=== PATIENT | female | born 1965 | race Caucasian/White ===

== ENCOUNTER → 2016-08-07 | Outpatient (CLI) | payer OTHER ==
--- NOTE | 2016-08-07 16:57 | WOMENS IMAGING REPORT ---
EXAM DESCRIPTION: BILAT SCREENING MAMMO W/CAD COMPLETED DATE/TIME: 08/07/2016 10:07 am REASON FOR STUDY: Z12.31, ROUTINE SCREENING MAMMO Z12.31 ENCNTR SCREEN MAMMOGRAM FOR MALIGNANT NEOP LASM OF KALEY COMPARISON: Multiple since 02/13/2014 TECHNIQUE: Standard craniocaudal and mediolateral oblique views of each breast recorded using digita l acquisition. LIMITATIONS: None. FINDINGS: Findings present which are benign by mammographic criteria. No suspicious masses, calcifi cations or architectural distortion. Pertinent benign findings: Stable benign bilateral breast calcifications. Left breast stereotactic c lip. Read with the assistance of CAD. .[facility] - R2 Cenova Version 1.3 .[facility] Imaging - R2 Cenova Version 1.3 .[facility] Imaging - R2 Cenova Version 2.4 .[facility] [place] Cenova Version 2.4 .[facility] - R2 Supervisor Modern Languages Version 9.2 Benign mammographic findings may include one or more of the following: Smooth masses, popcorn/rim/co arse calcifications, asymmetries, post-procedure changes, and lesions with long-standing stability. IMPRESSION: BENIGN MAMMOGRAPHIC FINDINGS. BIRADS 2 BREAST DENSITY: c. The breasts are heterogeneously dense, which may obscure small masses. BIRAD: 2 BENIGN FINDING(S) RECOMMENDATION: ROUTINE SCREENING Please consider bilateral screening tomosynthesis in July 2017 COMMENT: The patient has been notified of the results by letter per [place] requirements. Additional no tification policies are in place for contacting patient with suspicious or incomplete findings. Quality ID #[id number]: The [employer] recommends an annual screening mammogram for women aged 40 years or over. This facility utilizes a reminder system to ensure that all patients receive reminder letters, and/or direct phone calls for appointments. This includes reminders for routine scr eening mammograms, diagnostic mammograms, or other Breast Imaging Interventions when appropriate. Th is patient will be placed in the appropriate reminder system. The [employer] (ACR) has developed recommendations for screening MRI of the breast s in certain patient populations, to be used in conjunction with mammography. Breast MRI surveillanc e may be appropriate for women with more than 20% lifetime risk of developing breast cancer as deter mined by genetic testing, significant family history of the disease, or history of mantle radiation f or Hodgkins Disease. ACR Practice Guidelines 2008. TECHNICAL DOCUMENTATION: FINDING NUMBER: (1) ASSESSMENT: (1) JOB ID: [id number] [employer]- All Rights Reserved
== END ==
LOC: WI 09:44
PROVIDERS: ATTEND Family Medicine
DX: Z12.31 Encounter for screening mammogram for malignant neoplasm of breast (principal)
CPT/HCPCS: 77067; G0202

== ENCOUNTER 2016-12-24 18:34 | Emergency (ER) | payer OTHER ==
[2016-12-24] MEDS ORDERED: NORMAL SALINE 1000 ML 1,000 ML IV ONE (19:43)
[2016-12-24] MEDS ORDERED: DIAZEPAM INJ 10 MG/2 ML DISP.SYRIN IV ONE (19:43)
[2016-12-24 20:17] LABS: ABSOLUTE BASOPHILS # (AUTO) 0.1 10^3/uL (0.0-0.2); ABSOLUTE LYMPHOCYTES (AUTO) 1.3 10^3/uL (0.5-4.7); ABSOLUTE MONOCYTES (AUTO) 0.6 10^3/uL (0.1-1.4); ABSOLUTE NEUT (AUTO) 2.5 10^3/uL (1.7-8.2); BASOPHILS % (AUTO) 1.3 % (0-2); EOSINOPHILS % (AUTO) 0.7 % (0-6); HEMATOCRIT 31.2 % (36.0-47.0); HEMOGLOBIN 10.9 g/dL (12.0-15.5); HGB HCT DIFFERENCE 1.5; LYMPHOCYTES % (AUTO) 28.1 % (13-45); MEAN CORPUSCULAR HEMOGLOBIN 39.2 pg (27.0-33.4); MEAN CORPUSCULAR VOLUME 112 fl (80-97); MONOCYTES % (AUTO) 14.3 % (3-13); RED BLOOD COUNT 2.78 10^6/uL (3.72-5.28); RED CELL DISTRIBUTION WIDTH 16.8 % (11.5-14.0); SEGMENTED NEUTROPHILS % (AUTO) 55.6 % (42-78); WHITE BLOOD COUNT 4.5 10^3/uL (4.0-10.5)
--- NOTE | 2016-12-24 20:29 | ER Document Report ---
ED General - General Chief Complaint: Vomiting Stated Complaint: VOMITING Time Seen by Provider: 12/24/16 19:15 Notes: Patient is a 51-year-old female with a past medical history of chronic pain, chronic alcohol abuse, who presents with a multitude of complaints. Her primary concern appears to be complete body pain stating "everything hurts except my teeth". States that she has had this pain for at least the past several years. Nothing was new or different today other than "I just cannot take it anymore". She has been following with her primary care doctor at the [place] without resolution of her symptoms. She also complains of a constant, burning pain to her epigastrium and lower chest. She states eating or drinking worsens this discomfort. She has not tried anything to relieve her symptoms. Patient reports that she is having difficulty tolerating oral intake. Of note, patient does smell of alcohol. TRAVEL OUTSIDE OF THE [place] IN LAST 30 DAYS: No - Related Data Allergies/Adverse Reactions: No Known Allergies Allergy (Unverified 12/24/16 18:59) Past Medical History - General Information source: Patient - Social History Smoking Status: Current Every Day Smoker Frequency of alcohol use: None Drug Abuse: None Lives with: Family Family History: Reviewed & Not Pertinent Review of Systems - Review of Systems Notes: Constitutional: Negative for fever. Positive for diffuse body pain HENT: Negative for sore throat. Eyes: Negative for visual changes. Cardiovascular: Negative for chest pain. Respiratory: Negative for shortness of breath. Gastrointestinal: Positive for abdominal pain and vomiting Genitourinary: Negative for dysuria. Musculoskeletal: Negative for back pain. Skin: Negative for rash. Neurological: Negative for headaches, weakness or numbness. 10 point ROS negative except as marked above and in HPI. Physical Exam - Vital signs Vitals: Temp Pulse Resp BP Pulse Ox 98.9 F 110 H 20 116/79 98 12/24/16 18:56 12/24/16 18:56 12/24/16 18:56 12/24/16 18:56 12/24/16 18:56 Interpretation: Tachycardic Notes: PHYSICAL EXAMINATION: GENERAL: appears much older than stated age. Crying and tearful but in no acute distress. HEAD: Atraumatic, normocephalic. EYES: Pupils equal round and reactive to light, extraocular movements intact, sclera anicteric, conjunctiva are normal. ENT: nares patent, oropharynx clear without exudates. Moderately dry mucous membranes. NECK: Normal range of motion, supple without lymphadenopathy LUNGS: Breath sounds clear to auscultation bilaterally and equal. No wheezes rales or rhonchi. HEART: Regular rate and rhythm without murmurs ABDOMEN: Soft, mild epigastric abdominal tenderness on palpation otherwise no localized tenderness, normoactive bowel sounds. No guarding, no rebound. No masses appreciated. EXTREMITIES: Normal range of motion, no pitting or edema. No cyanosis. NEUROLOGICAL: No focal neurological deficits. Moves all extremities spontaneously and on command. PSYCH: Crying, highly anxious SKIN: Warm, Dry, normal turgor, no rashes or lesions noted. Course - Re-evaluation Re-evalutation: 12/24/16 20:29 Patient presents with multiple vague complaints that did not appear to be concerning for any acute life-threatening pathology. Vitals are within normal limits at triage and at time of discharge. Physical examination is unremarkable. Patient has tolerated oral intake without difficulty. Patient was not noted to be in distress at any point during their ER visit. At this time, based on the reassuring evaluation, I do not suspect an acute NH, pulmonary embolus, aortic dissection, acute intra-abdominal pathology, stroke, or sepsis. I suspect that patient is a chronic alcoholic and I have addressed this with the patient and her mother the bedside. I suspect that when patient first came to the emergency room she was actually having acute alcohol withdrawal resolved after receiving 10 mg of IV diazepam. Will discharge with return precautions and follow-up recommendations. Verbal discharge instructions given a the bedside and opportunity for questions given. Medication warnings reviewed. Patient is in agreement with this plan and has verbalized understanding of return precautions and the need for primary care follow-up in the next 24-72 hours. - Vital Signs Vital signs: Temp Pulse Resp BP Pulse Ox 99.1 F 90 20 132/78 H 98 12/24/16 21:56 12/24/16 21:56 12/24/16 18:56 12/24/16 21:56 12/24/16 21:56 - Laboratory Result Diagrams: 12/24/16 19:50 12/24/16 19:50 Laboratory results interpreted by me: 12/24/16 12/24/16 19:50 19:50 RBC 2.78 L Hgb 10.9 L Hct 31.2 L MCV 112 H MCH 39.2 H RDW 16.8 H Monocytes % 14.3 H Sodium 145.4 H BUN 3 L Direct Bilirubin 0.7 H AST 196 H ALT 61 H Alkaline Phosphatase 208 H Creatine Kinase 22 L Discharge - Discharge Clinical Impression: Epigastric abdominal pain, Nutrition disorder Alcohol dependency Qualifiers: Substance use status: in withdrawal Complication of substance-induced condition : uncomplicated Qualified Code(s): F10.230 - Alcohol dependence with withdrawal , uncomplicated Condition: Stable Disposition: HOME, SELF-CARE Additional Instructions: You were seen in the emergency department today for problems related to alcohol. Being seen in the emergency department after drinking alcohol is a serious indicator that you have a problem with alcohol. You should seek help with the attached resources for your problem drinking. Please return to the emergency room immediately if you experience any concerning symptoms including high fevers, severe headache, chest pain, difficulty breathing, abdominal pain, slurred speech, numbness or weakness in your arms or legs, or any other symptom that concerns you.
[2016-12-24 20:30] LABS: ALANINE AMINOTRANSFERASE 61 U/L (9-52); ALBUMIN 3.5 g/dL (3.5-5.0); ALCOHOL 162 mg/dL (NONE DETECTED); ALKALINE PHOSPHATASE 208 U/L (38-126); ANION GAP 16 (5-19); ASPARTATE AMINO TRANSFERASE 196 U/L (14-36); BILIRUBIN,DIRECT 0.7 mg/dL (0.0-0.4); BLOOD UREA NITROGEN 3 mg/dL (7-20); CALCIUM 8.7 mg/dL (8.4-10.2); CARBON DIOXIDE 24 mmol/L (22-30); CHLORIDE 105 mmol/L (98-107); CREATINE KINASE 22 U/L (30-135); CREATININE RESULT 0.64 mg/dL (0.52-1.25); GLUCOSE 78 mg/dL (75-110); POTASSIUM 3.7 mmol/L (3.6-5.0); SODIUM 145.4 mmol/L (137-145); TOTAL PROTEIN 6.6 g/dL (6.3-8.2)
[2016-12-24 20:53] LABS: ANISOCYTOSIS 1+; POIKILOCYTOSIS SLIGHT; TARGET CELLS SLIGHT; TOXIC GRANULATION SLIGHT
[2016-12-24 22:51] VITALS: BP 132/78
== END 2016-12-24 22:36 | disposition home or self-care (01) ==
LOC: ER 18:34
DX: R10.13 Epigastric pain (principal); E46 Unspecified protein-calorie malnutrition; F10.230 Alcohol dependence with withdrawal, uncomplicated; R11.10 Vomiting, unspecified; G89.29 Other chronic pain; M79.1 Myalgia; F17.200 Nicotine dependence, unspecified, uncomplicated
CPT/HCPCS: 99284; 96361; 96374; 36415; 80307; 82550; 85025; 80053; J3360; J7030

== ENCOUNTER 2017-01-22 11:42 | Emergency (ER) | payer OTHER ==
--- NOTE | 2017-01-22 11:54 | ER Document Report ---
ED Medical Screen (RME) - General Chief Complaint: Abnormal Lab Results Stated Complaint: ABNORMAL LABS Time Seen by Provider: 01/22/17 11:47 Notes: 51-year-old female patient sent to the emergency room for evaluation by the [place] [facility]. Had lab work done 2 days ago showing electrolyte abnormalities. She was seen here on 12/24/2016 with nausea vomiting, and EtOH intoxication. Elect lites were normal at that time, however she states she had been to an emergency room in [place] twice in the days prior where she had received IV fluids and magnesium and potassium. I have greeted and performed a rapid initial assessment of this patient. A comprehensive ED assessment and evaluation of the patient, analysis of test results and completion of the medical decision making process will be conducted by additional ED providers. TRAVEL OUTSIDE OF THE [place] IN LAST 30 DAYS: No - Related Data Allergies/Adverse Reactions: No Known Allergies Allergy (Verified 01/22/17 11:43) Past Medical History Renal/ Medical History: Denies: Hx Peritoneal Dialysis Physical Exam - Vital signs Vitals: Temp Pulse Resp BP Pulse Ox 98.6 F 93 15 115/89 H 98 01/22/17 11:46 01/22/17 11:46 01/22/17 11:46 01/22/17 11:46 01/22/17 11:46 Course - Vital Signs Vital signs: Temp Pulse Resp BP Pulse Ox 98.6 F 93 15 115/89 H 98 01/22/17 11:46 01/22/17 11:46 01/22/17 11:46 01/22/17 11:46 01/22/17 11:46
[2017-01-22 13:04] LABS: ABSOLUTE BASOPHILS # (AUTO) 0.1 10^3/uL (0.0-0.2); ABSOLUTE LYMPHOCYTES (AUTO) 0.9 10^3/uL (0.5-4.7); ABSOLUTE NEUT (AUTO) 4.2 10^3/uL (1.7-8.2); BASOPHILS % (AUTO) 0.9 % (0-2); EOSINOPHILS % (AUTO) 0.2 % (0-6); HEMATOCRIT 34.5 % (36.0-47.0); HEMOGLOBIN 11.9 g/dL (12.0-15.5); HGB HCT DIFFERENCE 1.2; LYMPHOCYTES % (AUTO) 15.2 % (13-45); MEAN CORPUSCULAR HEMOGLOBIN 37.5 pg (27.0-33.4); MEAN CORPUSCULAR HGB CONC 34.5 g/dL (32.0-36.0); MONOCYTES % (AUTO) 15.8 % (3-13); RED BLOOD COUNT 3.17 10^6/uL (3.72-5.28); RED CELL DISTRIBUTION WIDTH 15.8 % (11.5-14.0); SEGMENTED NEUTROPHILS % (AUTO) 67.9 % (42-78); WHITE BLOOD COUNT 6.2 10^3/uL (4.0-10.5)
[2017-01-22 13:10] LABS: MEAN CORPUSCULAR VOLUME 109 fl (80-97)
[2017-01-22 13:19] LABS: ALANINE AMINOTRANSFERASE 26 U/L (9-52); ALBUMIN 3.5 g/dL (3.5-5.0); ALKALINE PHOSPHATASE 157 U/L (38-126); ANION GAP 14 (5-19); ASPARTATE AMINO TRANSFERASE 33 U/L (14-36); BILIRUBIN,DIRECT 0.4 mg/dL (0.0-0.4); BILIRUBIN,TOTAL 0.5 mg/dL (0.2-1.3); BLOOD UREA NITROGEN 6 mg/dL (7-20); CALCIUM 8.7 mg/dL (8.4-10.2); CARBON DIOXIDE 32 mmol/L (22-30); CHLORIDE 95 mmol/L (98-107); CREATININE RESULT 0.56 mg/dL (0.52-1.25); GLUCOSE 85 mg/dL (75-110); SODIUM 140.6 mmol/L (137-145); TOTAL PROTEIN 6.9 g/dL (6.3-8.2)
[2017-01-22 13:23] LABS: ALCOHOL < 10 mg/dL (NONE DETECTED)
[2017-01-22 13:26] LABS: MAGNESIUM 0.8 mg/dL (1.6-2.3); POTASSIUM 2.6 mmol/L (3.6-5.0)
[2017-01-22] MEDS ORDERED: MAGNESIUM SULFATE/D5W 1 GM/100 ML RTUPB IV ONE (13:26)
[2017-01-22] MEDS ORDERED: POTASSI CL 20 MEQ/50 ML RIDER 20 MEQ/50 ML RTUPB IV SCH (13:28)
[2017-01-22] MEDS ORDERED: POTASSIUM CHLORIDE 10 MEQ TABLET.SA PO ONE (13:28)
[2017-01-22] MEDS ORDERED: POTASSI CL 20 MEQ/50 ML RIDER 20 MEQ/50 ML RTUPB IV ONE (13:28)
--- NOTE | 2017-01-22 13:46 | EKG REPORT ---
SEVERITY:- NORMAL ECG - SINUS RHYTHM NON SPECIFIC ST SEG CHANGES LATERAL CHEST LEAD : Confirmed by: Juan Del Toro 22-Jan-2017 13:45:35
--- NOTE | 2017-01-22 13:59 | ER Document Report ---
ED General - General Chief Complaint: Abnormal Lab Results Stated Complaint: ABNORMAL LABS Time Seen by Provider: 01/22/17 11:47 TRAVEL OUTSIDE OF THE [place] IN LAST 30 DAYS: No - HPI Patient complains to provider of: Abnormal laboratory studies Notes: Patient with a history of chronic alcoholism also a history of chronic hypokalemia hypomagnesemia states is been to this hospital before for nausea vomiting also recently has been to [facility] for hypokalemia hypomagnesemia. Patient coming in today states that 2 days ago [facility] perform [facility] studies and was told to come to the ER for significantly low potassium and magnesium. Patient states chronic pain in her legs states sharp shooting dull achy pain. Patient states is been ongoing for months. Otherwise patient's resting comfortably states that she does feel unwell however does not look to be in any kind of distress patient states no nausea vomiting diarrhea recently. Patient states has not felt like eating over the last few days however had good meals the last 2 days. - Related Data Allergies/Adverse Reactions: No Known Allergies Allergy (Verified 01/22/17 11:43) Past Medical History - Social History Smoking Status: Current Every Day Smoker Chew tobacco use (# tins/day): No Frequency of alcohol use: None Drug Abuse: None Family History: Reviewed & Not Pertinent Patient has suicidal ideation: No Patient has homicidal ideation: No Renal/ Medical History: Denies: Hx Peritoneal Dialysis Past Surgical History: Reports: Hx Appendectomy, Hx Orthopedic Surgery - L ankle Review of Systems - Review of Systems Constitutional: Other - Lab abnormalities EENT: No symptoms reported Cardiovascular: No symptoms reported Respiratory: No symptoms reported Gastrointestinal: No symptoms reported Genitourinary: No symptoms reported Female Genitourinary: No symptoms reported Musculoskeletal: No symptoms reported Skin: No symptoms reported Hematologic/Lymphatic: No symptoms reported Neurological/Psychological: No symptoms reported Physical Exam - Vital signs Vitals: Temp Pulse Resp BP Pulse Ox 98.6 F 93 15 115/89 H 98 01/22/17 11:46 01/22/17 11:46 01/22/17 11:46 01/22/17 11:46 01/22/17 11:46 Interpretation: Normal - General General appearance: Appears well, Alert - HEENT Head: Normocephalic, Atraumatic Eyes: Normal Pupils: PERRL - Respiratory Respiratory status: No respiratory distress Chest status: Nontender Breath sounds: Normal Chest palpation: Normal - Cardiovascular Rhythm: Regular Heart sounds: Normal auscultation Murmur: No - Abdominal Inspection: Normal Distension: No distension Bowel sounds: Normal Tenderness: Nontender Organomegaly: No organomegaly - Back Back: Normal, Nontender - Extremities General upper extremity: Normal inspection, Nontender, Normal color, Normal ROM , Normal temperature General lower extremity: Normal inspection, Nontender, Normal color, Normal ROM , Normal temperature, Normal weight bearing. No: Bruna's sign - Neurological Neuro grossly intact: Yes Cognition: Normal Orientation: AAOx4 Bivins Coma Scale Eye Opening: Spontaneous Bivins Coma Scale Verbal: Oriented Bivins Coma Scale Motor: Obeys Commands Annabel Coma Scale Total: 15 Speech: Normal Motor strength normal: LUE, RUE, LLE, RLE Sensory: Normal - Psychological Associated symptoms: Normal affect, Normal mood - Skin Skin Temperature: Warm Skin Moisture: Dry Skin Color: Normal Course - Re-evaluation Re-evalutation: 01/22/17 14:06 Potassium 2.6 magnesium was 0.8. Magnesium will replace potassium we will replace orally and IV will start patient on a low dose of potassium. Patient's laboratory studies were given to her to take to [facility] provider. Otherwise patient was to be no acute distress will discharge home. 01/22/17 14:07 EKG normal. - Vital Signs Vital signs: Temp Pulse Resp BP Pulse Ox 98.6 F 93 25 H 115/89 H 98 01/22/17 11:46 01/22/17 11:46 01/22/17 12:10 01/22/17 11:46 01/22/17 11:46 - Laboratory Result Diagrams: 01/22/17 12:15 01/22/17 12:15 Laboratory results interpreted by me: 01/22/17 01/22/17 12:15 12:15 RBC 3.17 L Hgb 11.9 L Hct 34.5 L MCV 109 H MCH 37.5 H RDW 15.8 H Monocytes % 15.8 H Potassium 2.6 L* Chloride 95 L Carbon Dioxide 32 H BUN 6 L Magnesium 0.8 L* Alkaline Phosphatase 157 H Discharge - Discharge Clinical Impression: Hypokalemia, Hypomagnesemia, Chronic leg pain Condition: Good Disposition: HOME, SELF-CARE Instructions: Hypokalemia ([facility]), Chronic Pain Control ([facility]) Additional Instructions: Please take your laboratory values to your primary care physician. Please continue with your potassium. Please continue to eat a healthy diet. Prescriptions: Potassium Chloride [Klor-Con 10 Meq Tablet.sa] 10 meq PO DAILY #30 tablet.sa Forms: Return to Work
[2017-01-22 14:26] LABS: THYROID STIMULATING HORMONE 4.45 uIU/mL (0.47-4.68)
[2017-01-22 16:16] VITALS: BP 140/60
[2017-01-22 16:57] LABS: APPEARANCE,URINE CLEAR; BILIRUBIN,URINE NEGATIVE (NEGATIVE); GLUCOSE, URINE NEGATIVE (NEGATIVE); KETONES,URINE NEGATIVE (NEGATIVE); LEUKOCYTE ESTERASE,URINE NEGATIVE (NEGATIVE); NITRITE,URINE NEGATIVE (NEGATIVE); PROTEIN,URINE NEGATIVE (NEGATIVE); URINE SPECIFIC GRAVITY 1.003; UROBILINOGEN,URINE NEGATIVE mg/dL (<2.0)
== END 2017-01-22 16:16 | disposition home or self-care (01) ==
LOC: ER 11:42
DX: E87.6 Hypokalemia (principal); E83.42 Hypomagnesemia; M79.606 Pain in leg, unspecified; G89.29 Other chronic pain; F10.20 Alcohol dependence, uncomplicated; F17.200 Nicotine dependence, unspecified, uncomplicated
CPT/HCPCS: 93005; 99284; 96375; 96365; 36415; 84439; 80307; 83735; 84443; 85025; 80053; 81001; 93010; J3475; J3480

== ENCOUNTER → 2017-09-13 | Outpatient (CLI) | payer OTHER ==
--- NOTE | 2017-09-13 16:13 | WOMENS IMAGING REPORT ---
EXAM DESCRIPTION: BILAT SCREENING MAMMO W/CAD COMPLETED DATE/TIME: 09/13/2017 12:45 pm REASON FOR STUDY: SCREENING MAMMO Z12.31 ENCNTR SCREEN MAMMOGRAM FOR MALIGNANT NEOPLASM OF KALEY COMPARISON: Multiple since 2014 TECHNIQUE: Standard craniocaudal and mediolateral oblique views of each breast recorded using digita l acquisition. LIMITATIONS: None. FINDINGS: Findings present which are benign by mammographic criteria. No suspicious masses, calcifi cations or architectural distortion. Pertinent benign findings: Bilateral benign breast parenchymal calcifications. Stereotactic clip lef t breast upper outer quadrant Read with the assistance of CAD. .[facility] - R2 Cenova Version 1.3 .[facility] Imaging - R2 Cenova Version 1.3 .[facility] Imaging - R2 Cenova Version 2.4 .[facility] [place] R2 Cenova Version 2.4 .[facility] - R2 Basketball Commentator Version 9.2 Benign mammographic findings may include one or more of the following: Smooth masses, popcorn/rim/co arse calcifications, asymmetries, post-procedure changes, and lesions with long-standing stability. IMPRESSION: BENIGN MAMMOGRAPHIC FINDINGS. BIRADS 2 BREAST DENSITY: c. The breasts are heterogeneously dense, which may obscure small masses. BIRAD: 2 BENIGN FINDING(S) RECOMMENDATION: ROUTINE SCREENING Please continue yearly bilateral screening mammography. Consider bilateral screening tomosynthesis g iven heterogeneously dense tissue COMMENT: The patient has been notified of the results by letter per MQSA requirements. Additional no tification policies are in place for contacting patient with suspicious or incomplete findings. Quality ID #[id number]: The [employer] recommends an annual screening mammogram for women aged 40 years or over. This facility utilizes a reminder system to ensure that all patients receive reminder letters, and/or direct phone calls for appointments. This includes reminders for routine scr eening mammograms, diagnostic mammograms, or other Breast Imaging Interventions when appropriate. Th is patient will be placed in the appropriate reminder system. The [employer] (ACR) has developed recommendations for screening MRI of the breast s in certain patient populations, to be used in conjunction with mammography. Breast MRI surveillanc e may be appropriate for women with more than 20% lifetime risk of developing breast cancer as deter mined by genetic testing, significant family history of the disease, or history of mantle radiation f or Hodgkins Disease. ACR Practice Guidelines 2008. TECHNICAL DOCUMENTATION: FINDING NUMBER: (1) ASSESSMENT: (1) JOB ID: [id number] All Rights Reserved Reading location - IP/workstation name: [email or web address]
== END ==
LOC: WI 11:12
PROVIDERS: ATTEND Family Medicine
DX: Z12.31 Encounter for screening mammogram for malignant neoplasm of breast (principal)
CPT/HCPCS: 77067

== ENCOUNTER 2018-02-21 17:32 | Inpatient (IN) | payer OTHER ==
[2018-02-21 17:56] LABS: ABSOLUTE LYMPHOCYTES (AUTO) 1.1 10^3/uL (0.5-4.7); ABSOLUTE MONOCYTES (AUTO) 0.8 10^3/uL (0.1-1.4); ABSOLUTE NEUT (AUTO) 4.5 10^3/uL (1.7-8.2); BASOPHILS % (AUTO) 0.3 % (0-2); EOSINOPHILS % (AUTO) 0.2 % (0-6); HEMATOCRIT 34.3 % (36.0-47.0); HEMOGLOBIN 12.2 g/dL (12.0-15.5); LYMPHOCYTES % (AUTO) 17.5 % (13-45); MEAN CORPUSCULAR HEMOGLOBIN 37.8 pg (27.0-33.4); MEAN CORPUSCULAR HGB CONC 35.5 g/dL (32.0-36.0); MEAN CORPUSCULAR VOLUME 107 fl (80-97); MONOCYTES % (AUTO) 11.9 % (3-13); PLATELET COUNT 198 10^3/uL (150-450); RED BLOOD COUNT 3.22 10^6/uL (3.72-5.28); RED CELL DISTRIBUTION WIDTH 18.6 % (11.5-14.0); SEGMENTED NEUTROPHILS % (AUTO) 70.1 % (42-78); TOTAL CELLS COUNTED % (AUTO) 100 %; WHITE BLOOD COUNT 6.5 10^3/uL (4.0-10.5)
[2018-02-21 18:03] LABS: ALANINE AMINOTRANSFERASE 58 U/L (9-52); ALBUMIN 5.2 g/dL (3.5-5.0); ALKALINE PHOSPHATASE 347 U/L (38-126); ASPARTATE AMINO TRANSFERASE 285 U/L (14-36); BILIRUBIN,TOTAL 1.6 mg/dL (0.2-1.3); BLOOD UREA NITROGEN 5 mg/dL (7-20); CALCIUM 8.6 mg/dL (8.4-10.2); GLUCOSE 156 mg/dL (75-110); POTASSIUM 3.1 mmol/L (3.6-5.0); TOTAL PROTEIN 9.3 g/dL (6.3-8.2)
[2018-02-21 18:08] LABS: CARBON DIOXIDE 30 mmol/L (22-30); CHLORIDE 81 mmol/L (98-107)
[2018-02-21 18:10] LABS: ALCOHOL < 10 mg/dL (NONE DETECTED); ANION GAP 20 (5-19)
[2018-02-21] MEDS: MAGNESIUM SULFATE/D5W 1 GM/100 ML RTUPB IV SCH ×3 (18:18→20:33)
[2018-02-21] MEDS ORDERED: LORAZEPAM INJ 2 MG/1 ML VIAL IV ONE (18:38)
[2018-02-21] MEDS ORDERED: NORMAL SALINE 1000 ML 1,000 ML with POTASSIUM CHLORIDE 20 MEQ, MAGNESIUM SULFATE 8 MEQ,... IV PRN ×5 (18:39)
[2018-02-21] MEDS ORDERED: POTASSIUM CHLORIDE 10 MEQ CAPSULE.ER PO ONE (18:40)
--- NOTE | 2018-02-21 19:55 | ER Document Report ---
ED General - General Chief Complaint: Alcohol Withdrawl Stated Complaint: POSSIBLE SEIZURE Time Seen by Provider: 02/21/18 18:13 Notes: Patient is a 52-year-old female with history of alcoholism that presents to the emergency department for chief complaint of seizures. Patient states that while she was at home, she had 3 episodes of seizure-like activity, the first 2, she states that she was staring off, and her arm went in the air, seemingly like a partial seizure, and the second she had some jerking motions, no third she does not remember, apparently she had slid down out of the chair, and was having convulsions, this lasted less than a minute, was apparently witnessed by her mother. EMS arrived, the patient does not remember anything leading up to EMS arriving, she states the other episodes lasted only a few seconds. She reports her last drink was approximately 2 days ago, she usually drank a large container of vodka every 3 days, for many years, decided to stop drinking all of a sudden, because she states she just wanted to stop being an alcoholic, had no other reason. She denies having any headache at this time, denies having any chest pain, shortness of breath, difficulty breathing, or having any tremor. She denies history of alcohol withdrawal seizures in the past. Past Medical History: Alcohol abuse, history of low magnesium and potassium, history of anal cancer Past Surgical History: Anal cancer surgery and biopsies Social History: Admits to drinking alcohol daily, only recently stopped 2 days ago, denies tobacco or illicit drug use. Family History: Reviewed and noncontributory for presenting illness Allergies: Reviewed, see documented allergy list. REVIEW OF SYSTEMS: Other than noted above, the 12 point review of systems was reviewed with the patient and were negative, all pertinent findings are included in the HPI. PHYSICAL EXAMINATION: Vital signs reviewed, nursing noted reviewed. GENERAL: Well-appearing, well-nourished and in no acute distress. HEAD: Atraumatic, normocephalic. EYES: Eyes appear normal, extraocular movements intact, sclera anicteric, conjunctiva are normal. ENT: nares patent, oropharynx clear without exudates. Moist mucous membranes. NECK: Normal range of motion, supple without lymphadenopathy LUNGS: Breath sounds clear to auscultation bilaterally and equal. No wheezes rales or rhonchi. HEART: Regular rate and rhythm without murmurs ABDOMEN: Soft, nontender, normoactive bowel sounds. No rebound, guarding, or rigidity. No masses appreciated. EXTREMITIES: Nontender, good range of motion, no pitting or edema. NEUROLOGICAL: No focal neurological deficits. Moves all extremities spontaneously Motor and sensory grossly intact on exam. PSYCH: Normal mood, normal affect. SKIN: Warm, Dry, normal turgor, no rashes or lesions noted on exposed skin TRAVEL OUTSIDE OF THE [place] IN LAST 30 DAYS: No - Related Data Allergies/Adverse Reactions: No Known Allergies Allergy (Verified 01/22/17 11:43) Past Medical History - Social History Smoking Status: Current Every Day Smoker Chew tobacco use (# tins/day): No Frequency of alcohol use: Heavy Drug Abuse: None Family History: Reviewed & Not Pertinent Patient has suicidal ideation: No Patient has homicidal ideation: No - Past Medical History Cardiac Medical History: Reports: Hx Hypertension Renal/ Medical History: Denies: Hx Peritoneal Dialysis Past Surgical History: Reports: Hx Appendectomy, Hx Orthopedic Surgery - L ankle Physical Exam - Vital signs Vitals: Temp 98.8 F 02/21/18 17:42 Course - Re-evaluation Re-evalutation: Patient seen and examined vital signs reviewed. Laboratory data and imaging were ordered as appropriate for the patient's presenting symptoms and complaint, with consideration of any critical or life threatening conditions that may be associated with their obtained history and exam as noted above. Patient was treated with banana bag, and 2 mg of IV Ativan, to prevent further seizure, and given 3 g of IV magnesium for her hypomagnesemia and oral potassium basement Results were reviewed when available and demonstrated severe hypomagnesemia, moderate hyponatremia, mild hyponatremia no acute kidney injury, and transaminitis, consistent with the patient's alcohol history The patient was re-evaluated and was stable, no seizure activity Evaluation was most consistent with alcohol withdrawal seizures, severe hypomagnesemia Results were discussed with the patient at this point after careful consideration I feel that that patient should be admitted to the hospital. This was discussed with the patient that it is in the best interest for their care to be admitted for further evaluation and management. Patient agreed with this plan of care. A call was placed to the admitted physician, Dr. Higgins who graciously accepted the patient onto their service. *Note is created using voice recognition software and may contain spelling, syntax or grammatical errors. Laboratory 02/21/18 02/21/18 02/21/18 17:00 17:00 17:00 WBC 6.5 RBC 3.22 L Hgb 12.2 Hct 34.3 L MCV 107 H MCH 37.8 H MCHC 35.5 RDW 18.6 H Plt Count 198 Seg Neutrophils % 70.1 Lymphocytes % 17.5 Monocytes % 11.9 Eosinophils % 0.2 Basophils % 0.3 Absolute Neutrophils 4.5 Absolute Lymphocytes 1.1 Absolute Monocytes 0.8 Absolute Eosinophils 0.0 Absolute Basophils 0.0 Sodium 131.0 L Potassium 3.1 L Chloride 81 L Carbon Dioxide 30 Anion Gap 20 H BUN 5 L Creatinine 0.98 Est GFR ( Amer) > 60 Est GFR (Non-Af Amer) > 60 Glucose 156 H Calcium 8.6 Magnesium 0.6 L* Total Bilirubin 1.6 H Direct Bilirubin 1.0 H Neonat Total Bilirubin Not Reportable Neonat Direct Bilirubin Not Reportable Neonat Indirect Bili Not Reportable AST 285 H ALT 58 H Alkaline Phosphatase 347 H Creatine Kinase 293 H Total Protein 9.3 H Albumin 5.2 H Serum Alcohol < 10 - Vital Signs Vital signs: Temp Pulse Resp BP Pulse Ox 98.8 F 21 H 157/98 H 100 02/21/18 17:45 02/21/18 19:02 02/21/18 18:00 02/21/18 18:01 - Laboratory Result Diagrams: 02/21/18 17:00 02/21/18 17:00 Laboratory results interpreted by me: 02/21/18 02/21/18 02/21/18 17:00 17:00 17:00 RBC 3.22 L Hct 34.3 L MCV 107 H MCH 37.8 H RDW 18.6 H Sodium 131.0 L Potassium 3.1 L Chloride 81 L Anion Gap 20 H BUN 5 L Glucose 156 H Magnesium 0.6 L* Total Bilirubin 1.6 H Direct Bilirubin 1.0 H AST 285 H ALT 58 H Alkaline Phosphatase 347 H Creatine Kinase 293 H Total Protein 9.3 H Albumin 5.2 H - EKG Interpretation by Me Additional EKG results interpreted by me: EKG demonstrates sinus rhythm with a ventricular rate of 87 bpm, normal axis, normal intervals, no evidence of acute ischemia on this EKG, this is compared with prior EKG from 01/22/2017, without significant change, there is baseline artifact noted. Critical Care Note - Critical Care Note Total time excluding time spent on procedures (mins): 35 Comments: Critical care time 35 minutes exclusive from separate billable procedures for a patient requiring complex medical decision making, and high potential for clinical deterioration. In a patient with severe electrolyte abnormalities, require IV replacement of magnesium. Time spent obtaining history from patient or surrogate, discussions with consultants, development of treatment plan with patient or surrogate, evaluation of patient's response to treatment, examination of patient, ordering and performing treatments and interventions, ordering and review of laboratory studies, re-evaluation of patient's condition, ordering and review of radiographic studies and review of old charts Discharge - Discharge Clinical Impression: Hypomagnesemia, Hypokalemia, Hyponatremia, Transaminitis Alcohol withdrawal seizure Qualifiers: Complication of substance-induced condition: uncomplicated Qualified Code(s): F10.230 - Alcohol dependence with withdrawal, uncomplicated Condition: Stable Disposition: ADMITTED INPATIENT Admitting Provider: Hospitalist - Dr. Higgins Unit Admitted: Medical Floor
[2018-02-21] MEDS ORDERED: ONDANSETRON HCL INJ/PF 4 MG/2 ML SDV IV PRN (20:10)
[2018-02-21] MEDS ORDERED: MAGNESIUM HYDROXIDE SUSP 30 ML UDCUP PO PRN (20:10)
[2018-02-21] MEDS ORDERED: ONDANSETRON 4 MG TAB.RAPDIS PO PRN (20:10)
[2018-02-21] MEDS ORDERED: MAG HYDROX/AL HYDROX/SIMETH SUSP 30 ML UDCUP PO PRN (20:10)
[2018-02-21] MEDS ORDERED: NALBUPHINE HCL INJ 10 MG/1 ML AMPULE IV PRN (20:40)
[2018-02-21] MEDS ORDERED: ACETAMINOPHEN 650 MG SUPP.RECT PR PRN (20:40)
[2018-02-21] MEDS ORDERED: ACETAMINOPHEN 325 MG TABLET PO PRN (20:40)
[2018-02-21] MEDS ORDERED: DIAZEPAM INJ 10 MG/2 ML DISP.SYRIN IV PRN (20:44)
[2018-02-21 20:52] LABS: CREATINE KINASE MB 4.96 ng/mL (<4.55)
[2018-02-21 21:07] LABS: TROPONIN I 0.06 ng/mL
[2018-02-21] MEDS ORDERED: ATENOLOL 50 MG TABLET PO SCH (22:00)
[2018-02-21] MEDS ORDERED: CLONAZEPAM 1 MG TABLET PO SCH (22:00)
[2018-02-21] MEDS: FAMOTIDINE 20 MG TABLET PO SCH (22:45)
[2018-02-21] MEDS: HEPARIN SOD (PORCINE) 5,000 UNIT/ML 1 ML SYRINGE SUBCUT SCH (22:46)
[2018-02-21] MEDS: ATENOLOL 50 MG TABLET PO SCH (22:46)
--- NOTE | 2018-02-21 22:57 | RADIOLOGY REPORT (SQ) ---
EXAM DESCRIPTION: CT HEAD WITHOUT IV CONTRAST COMPLETED DATE/TME: 02/21/2018 00:00 CLINICAL HISTORY: 52 years, Female, seizure This exam was performed according to our departmental dose-optimization program which includes automated exposure control, adjustment of the mA and/or kVp according to patient size and/or use of iterative reconstruction technique where applicable. FINDINGS: No acute intracranial hemorrhage, mass effect or midline shift. No extra-axial fluid collections. Ventricles and subarachnoid spaces are preserved. English-white matter differentiation is preserved. Visualized paranasal sinuses and the mastoid air cells are clear. The skull is intact. IMPRESSION: No acute intracranial hemorrhage.
--- NOTE | 2018-02-22 00:17 | EKG REPORT ---
SEVERITY:- ABNORMAL ECG - PACEMAKER SPIKES OR ARTIFACTS SINUS RHYTHM ABNRM R PROG, CONSIDER ASMI OR LEAD PLACEMENT BORDERLINE PROLONGED QT INTERVAL : Confirmed by: Juan Del Toro 22-Feb-2018 00:16:12
[2018-02-22 01:00] LABS: CREATINE KINASE MB 4.47 ng/mL (<4.55); TROPONIN I 0.063 ng/mL
--- NOTE | 2018-02-22 01:18 | PDOC H&P ---
History of Present Illness Admission Date/PCP: NORIS HUNTER DO Patient complains of: Alcohol withdrawal seizures History of Present Illness: MATEO TERAN is a 52 year old female who presented to the emergency room with a complaint of 3 "seizures" occurring this evening just prior to coming to the emergency room. She admits that she was aware of the first 2 "mild episodes" which she describes as being a brief interval of staring off into space and having some uncontrollable movements of her extremities with either geovani- ballistic or jerking motions. She further admits that for the third "severe episode" she became unconscious, but her mother who witnessed it noted that she slid down in her chair and was having convulsions of her whole body lasting less than a minute. All 3 episodes occurred over a short spans of time of no more than 10 minutes. She acknowledges that she stopped drinking alcohol approximately 2 days ago. She admits that she was a very heavy every day drinker for many years consuming 1/2 gallon of vodka every 2-3 days. She denies prior similar episodes and has not identified any other aggravating or ameliorating factors for her seizures. After the third episode her mother summoned the ambulance and she was transported to the emergency room. Where she was found to have hypomagnesemia with a serum magnesium 0.6, moderate h ypokalemia, mild hyponatremia and elevated liver function tests. She was also noted to be moderately hypertensive but was not found to have a significant tremor, evidence of severe anxiety or hallucinations. She did not complain of postictal headache or lethargy during her ER evaluation. The patient was subsequently admitted to the medical floor with telemetry for further evaluation and treatment. Past Medical History Cardiac Medical History: Reports: Hypertension Denies: Coronary Artery Disease, DVT, Pulmonary Embolism Pulmonary Medical History: Denies: Asthma, Chronic Obstructive Pulmonary Disease (COPD) EENT Medical History: Reports: None Neurological Medical History: Denies: Hemorrhagic CVA, Ischemic CVA, Seizures Endocrine Medical History: Denies: Diabetes Mellitus Type 1, Diabetes Mellitus Type 2, Hyperthyroidism, Hypothyroidism, Obesity Renal/ Medical History: Denies: Chronic Kidney Disease, Nephrolithiasis Malignancy Medical History: Reports: Colorectal Cancer GI Medical History: Denies: Cirrhosis, Hepatitis Musculoskeltal Medical History: Denies: Arthritis, Gout Skin Medical History: Denies: Eczema, Psoriasis Psychiatric Medical History: Reports: Alcohol Dependency, Tobacco Dependency Denies: Substance Abuse Traumatic Medical History: Reports: None Hematology: Reports: Other - History of B12 and folate deficiencies Denies: Anemia, Bleeding Tendencies Infectious Medical History: Reports: None Past Surgical History Past Surgical History: Reports: Appendectomy, Orthopedic Surgery - L ankle, Other - Biopsies and surgery for anal cancer Social History Information Source: Patient Lives with: Family Smoking Status: Current Every Day Smoker Frequency of Alcohol Use: Heavy Hx Recreational Drug Use: No Drugs: None Hx Prescription Drug Abuse: No - Advance Directive Resuscitation Status: Full Code Surrogate healthcare decision maker:: Maddy Martel Family History Family History: Hypertension Parental Family History Reviewed: Yes Children Family History Reviewed: No Sibling(s) Family History Reviewed.: Yes Medication/Allergy Home Medications: Unobtainable 02/21/18 Allergies/Adverse Reactions: No Known Allergies Allergy (Verified 01/22/17 11:43) Review of Systems Constitutional: ABSENT: chills, fever(s), headache(s) Eyes: ABSENT: visual disturbances, other - Ocular pain Ears: ABSENT: hearing changes, other - Ear pain Nose, Mouth, and Throat: ABSENT: mouth pain, sore throat Cardiovascular: ABSENT: chest pain, dyspnea on exertion, edema, orthropnea, palpitations Respiratory: ABSENT: cough, dyspnea Gastrointestinal: ABSENT: abdominal pain, constipation, diarrhea, nausea, vomiting Genitourinary: ABSENT: dysuria, hematuria Musculoskeletal: ABSENT: back pain, joint swelling Integumentary: ABSENT: pruritus, rash Neurological: PRESENT: as per HPI, abnormal movements, convulsions. ABSENT: confusion, memory loss Psychiatric: ABSENT: anxiety, depression, hallucinations Endocrine: ABSENT: cold intolerance, heat intolerance Hematologic/Lymphatic: ABSENT: easy bleeding, easy bruising Physical Exam Vital Signs: Temp Pulse Resp BP Pulse Ox 98.8 F 21 H 157/98 H 100 02/21/18 17:45 02/21/18 19:02 02/21/18 18:00 02/21/18 18:01 Intake & Output 02/19/18 02/20/18 02/21/18 23:59 23:59 23:59 Intake Total 100 Balance 100 Weight 55.7 kg General appearance: PRESENT: no acute distress, cooperative Head exam: PRESENT: atraumatic, normocephalic Eye exam: PRESENT: conjunctiva pink, EOMI. ABSENT: scleral icterus Ear exam: PRESENT: normal external ear exam. ABSENT: bleeding, drainage Mouth exam: PRESENT: dry mucosa, neck supple Neck exam: ABSENT: JVD, thyromegaly, tracheal deviation Respiratory exam: PRESENT: clear to auscultation kim, symmetrical, unlabored Cardiovascular exam: PRESENT: RRR. ABSENT: clicks, gallop, rubs Pulses: PRESENT: normal radial pulses, normal dorsalis pedis pul Vascular exam: PRESENT: normal capillary refill. ABSENT: pallor GI/Abdominal exam: PRESENT: normal bowel sounds, soft Rectal exam: PRESENT: deferred Extremities exam: ABSENT: joint swelling, pedal edema Musculoskeletal exam: PRESENT: full ROM, normal inspection Neurological exam: PRESENT: alert, oriented to person, oriented to place, oriented to time, oriented to situation, CN II-XII grossly intact. ABSENT: motor sensory deficit Psychiatric exam: PRESENT: appropriate affect, normal mood Skin exam: PRESENT: dry, intact, warm. ABSENT: jaundice, rash, urticaria Results Laboratory Results: 02/21/18 17:00 02/21/18 17:00 02/21/18 02/21/18 17:00 17:00 WBC 6.5 RBC 3.22 L Hgb 12.2 Hct 34.3 L MCV 107 H MCH 37.8 H MCHC 35.5 RDW 18.6 H Plt Count 198 Seg Neutrophils % 70.1 Lymphocytes % 17.5 Monocytes % 11.9 Eosinophils % 0.2 Basophils % 0.3 Absolute Neutrophils 4.5 Absolute Lymphocytes 1.1 Absolute Monocytes 0.8 Absolute Eosinophils 0.0 Absolute Basophils 0.0 Sodium 131.0 L Potassium 3.1 L Chloride 81 L Carbon Dioxide 30 Anion Gap 20 H BUN 5 L Creatinine 0.98 Est GFR ( Amer) > 60 Est GFR (Non-Af Amer) > 60 Glucose 156 H Calcium 8.6 Magnesium 0.6 L* Total Bilirubin 1.6 H AST 285 H ALT 58 H Alkaline Phosphatase 347 H Total Protein 9.3 H Albumin 5.2 H Assessment & Plan - Diagnosis (1) Hypomagnesemia Is this a current diagnosis for this admission?: Yes Plan: Patient will receive magnesium sulfate 3 g IV per therapy initiated by the emergency room physician. Magnesium levels will be checked on a regular basis with further treatment provided as required. (2) Alcohol withdrawal Qualifiers: Complication of substance-induced condition: with unspecified complication Qualified Code(s): F10.239 - Alcohol dependence with withdrawal, unspecified Is this a current diagnosis for this admission?: Yes Plan: Patient will be treated with clonazepam 1 mg p.o. every 8 hours for prevention of seizures and will be closely observed for development of delirium, tremor, anxiety or restlessness. Valium 10 mg IV q. one hour as needed for anxiety or restlessness is ordered. (3) HTN (hypertension) Qualifiers: Hypertension type: unspecified Qualified Code(s): I10 - Essential (primary) hypertension Is this a current diagnosis for this admission?: Yes Plan: Patient was started on atenolol 50 mg p.o. nightly for her hypertension. Her b lood pressure be monitored with regular vital sign evaluations and daily metabolic profiles and magnesium levels will be obtained as well as daily CBCs. (4) Hypokalemia Is this a current diagnosis for this admission?: Yes Plan: Patient's potassium will be repleted via K rider. Daily evaluations patient's metabolic profile will be used to assess her electrolyte balance. (5) Hyponatremia Is this a current diagnosis for this admission?: Yes Plan: Patient's hyponatremia will be observed for correction with daily metabolic profiles. (6) Transaminitis Is this a current diagnosis for this admission?: Yes Plan: Patient's transaminitis is most likely due to her alcohol intake over a long period of years. This most likely reflects a degree of alcoholic liver disease and further evaluations of her liver enzymes would be appropriate during this hospitalization and at post hospital follow-up visits. - Time Time Spent: 30 to 50 Minutes Critical Time spent with patient: Less than 15 minutes Smoking Cessation Education: 3 to 10 minutes Anticipated discharge: Home - Inpatient Certification Based on my medical assessment, after consideration of the patient's comorbidities, presenting symptoms, or acuity I expect that the services needed warrant INPATIENT care.: Yes I certify that my determination is in accordance with my understanding of Medicare's requirements for reasonable and necessary INPATIENT services [42 CFR 412.3e].: Yes Medical Necessity: Significant Comorbidiites Make Outpatient Treatment Too Risky, Need Close Monitoring Due to Risk of Patient Decompensation, Need For Continuous Telemetry Monitoring, Risk of Complication if Not Cared For in Hospital
[2018-02-22] MEDS: HEPARIN SOD (PORCINE) 5,000 UNIT/ML 1 ML SYRINGE SUBCUT SCH ×3 (05:52→21:19)
[2018-02-22] MEDS ORDERED: CLONAZEPAM 1 MG TABLET PO SCH (06:00)
[2018-02-22 06:50] LABS: HEMATOCRIT 26.8 % (36.0-47.0); MEAN CORPUSCULAR HEMOGLOBIN 37.8 pg (27.0-33.4); MEAN CORPUSCULAR HGB CONC 35.6 g/dL (32.0-36.0); MEAN CORPUSCULAR VOLUME 106 fl (80-97); PLATELET COUNT 139 10^3/uL (150-450); RED BLOOD COUNT 2.53 10^6/uL (3.72-5.28); RED CELL DISTRIBUTION WIDTH 18.8 % (11.5-14.0); WHITE BLOOD COUNT 4.2 10^3/uL (4.0-10.5)
[2018-02-22 06:51] LABS: HEMOGLOBIN 9.6 g/dL (12.0-15.5)
[2018-02-22 07:04] LABS: ANION GAP 6 (5-19); BLOOD UREA NITROGEN 5 mg/dL (7-20); CALCIUM 7.6 mg/dL (8.4-10.2); CARBON DIOXIDE 30 mmol/L (22-30); CHLORIDE 94 mmol/L (98-107); CHOLESTEROL 168.76 mg/dL (0-200); CREATINE KINASE 246 U/L (30-135); GLUCOSE 93 mg/dL (75-110); POTASSIUM 3.6 mmol/L (3.6-5.0); TRIGLYCERIDES 198 mg/dL (<150)
[2018-02-22 07:15] LABS: CREATINE KINASE MB 3.09 ng/mL (<4.55); DIRECT LDL 84 mg/dL (<100); TROPONIN I 0.047 ng/mL
[2018-02-22 07:21] LABS: FREE T3 3.29 pg/mL (2.77-5.27); FREE T4 (FREE THYROXINE) 0.87 ng/dL (0.78-2.19)
[2018-02-22 07:26] LABS: VLDL CHOLESTEROL 39.6 mg/dL (10-31)
[2018-02-22 07:35] LABS: THYROID STIMULATING HORMONE 3.46 uIU/mL (0.47-4.68)
[2018-02-22] MEDS: DOCUSATE SODIUM 100 MG CAPSULE PO SCH ×2 (09:29→17:33)
[2018-02-22] MEDS: FAMOTIDINE 20 MG TABLET PO SCH ×2 (09:29→21:17)
[2018-02-22] MEDS: NICOTINE 21 MG/24 HR PATCH.TD24 TD PRN (09:30)
--- NOTE | 2018-02-22 14:57 | PDOC PROGRESS REPORT ---
Subjective Progress Note for:: 02/22/18 Subjective:: This is a 52 yr old female with a PMH of alcohol abuse who was brought in due to seizures after alcohol cessation. Patient reportedly had tonic seizures (3x) and was admitted for likely alcohol withdrawal seizures. No acute event overnight. No recurrence of seizure since admission. Patient says she drinks ~8 shots of vodka/day. She says her last drink was on Wednesday when she decided to quit. Denies other acute symptoms. No SOB or chest pain. No headache, fever or chills. Complimented on her alcohol cessation and encouraged to continue same. She says she will try to refrain from resuming but does admit she had quit before and had relapsed. She denies depressed mood and says it's more of a habit. Denies abdominal pain. Reason For Visit: ACUTE ETHANOL WITHDRAWAL WITH SEIZURES AND HYPOMAG Physical Exam Vital Signs: Temp Pulse Resp BP Pulse Ox 97.9 F 64 16 120/79 100 02/22/18 11:31 02/22/18 11:31 02/22/18 11:31 02/22/18 11:31 02/22/18 11:31 Intake & Output 02/21/18 02/22/18 02/23/18 06:59 06:59 06:59 Intake Total 500 1023 Balance 500 1023 Weight 123 lb 3.814 oz General appearance: PRESENT: no acute distress, well-developed, well-nourished Head exam: PRESENT: atraumatic, normocephalic Eye exam: PRESENT: conjunctiva pink, EOMI, PERRLA. ABSENT: scleral icterus Ear exam: PRESENT: normal external ear exam Mouth exam: PRESENT: moist, tongue midline Neck exam: ABSENT: carotid bruit, JVD, lymphadenopathy, thyromegaly Respiratory exam: PRESENT: clear to auscultation kim. ABSENT: rales, rhonchi, wheezes Cardiovascular exam: PRESENT: RRR. ABSENT: diastolic murmur, rubs, systolic murmur Pulses: PRESENT: normal dorsalis pedis pul GI/Abdominal exam: PRESENT: normal bowel sounds, soft. ABSENT: distended, guarding, mass, organolmegaly, rebound, tenderness Rectal exam: PRESENT: deferred Neurological exam: PRESENT: alert, awake, oriented to person, oriented to place, oriented to time, oriented to situation, CN II-XII grossly intact. ABSENT: motor sensory deficit Results Laboratory Results: 02/22/18 06:36 02/22/18 06:36 02/21/18 02/21/18 02/22/18 17:00 17:00 06:36 WBC 6.5 4.2 RBC 3.22 L 2.53 L Hgb 12.2 9.6 L D Hct 34.3 L 26.8 L MCV 107 H 106 H MCH 37.8 H 37.8 H MCHC 35.5 35.6 RDW 18.6 H 18.8 H Plt Count 198 139 L Seg Neutrophils % 70.1 Lymphocytes % 17.5 Monocytes % 11.9 Eosinophils % 0.2 Basophils % 0.3 Absolute Neutrophils 4.5 Absolute Lymphocytes 1.1 Absolute Monocytes 0.8 Absolute Eosinophils 0.0 Absolute Basophils 0.0 Sodium 131.0 L Potassium 3.1 L Chloride 81 L Carbon Dioxide 30 Anion Gap 20 H BUN 5 L Creatinine 0.98 Est GFR ( Amer) > 60 Est GFR (Non-Af Amer) > 60 Glucose 156 H Calcium 8.6 Magnesium 0.6 L* Total Bilirubin 1.6 H AST 285 H ALT 58 H Alkaline Phosphatase 347 H Total Protein 9.3 H Albumin 5.2 H Triglycerides Cholesterol LDL Cholesterol Direct VLDL Cholesterol HDL Cholesterol TSH Free T4 Free T3 pg/mL 02/22/18 02/22/18 06:36 06:36 WBC RBC Hgb Hct MCV MCH MCHC RDW Plt Count Seg Neutrophils % Lymphocytes % Monocytes % Eosinophils % Basophils % Absolute Neutrophils Absolute Lymphocytes Absolute Monocytes Absolute Eosinophils Absolute Basophils Sodium 130.0 L Potassium 3.6 Chloride 94 L Carbon Dioxide 30 Anion Gap 6 BUN 5 L Creatinine 0.83 Est GFR ( Amer) > 60 Est GFR (Non-Af Amer) > 60 Glucose 93 Calcium 7.6 L Magnesium 2.2 D Total Bilirubin AST ALT Alkaline Phosphatase Total Protein Albumin Triglycerides 198 H Cholesterol 168.76 LDL Cholesterol Direct 84 VLDL Cholesterol 39.6 H HDL Cholesterol 62 TSH 3.46 Free T4 0.87 Free T3 pg/mL 3.29 02/21/18 02/21/18 02/22/18 17:00 17:00 00:23 Creatine Kinase 293 H 304 H CK-MB (CK-2) 4.96 H Troponin I 0.060 02/22/18 02/22/18 02/22/18 00:23 06:36 06:36 Creatine Kinase 246 H Cancelled CK-MB (CK-2) 4.47 Troponin I 0.063 02/22/18 06:36 Creatine Kinase CK-MB (CK-2) 3.09 Troponin I 0.047 Impressions: Head CT 02/21/18 00:00 IMPRESSION: No acute intracranial hemorrhage. Assessment & Plan - Diagnosis (1) Alcohol withdrawal Qualifiers: Complication of substance-induced condition: with unspecified complication Qualified Code(s): F10.239 - Alcohol dependence with withdrawal, unspecified Is this a current diagnosis for this admission?: Yes Plan: The onset of her seizures are more consistent with alcohol withdrawal seizures. She was started and is currently on clonazepam, diazepam 10 mg qhourly prn and Nubain. Discontinue above regimen and switch to Ativan 3 mg q2h prn. Risk for alcohol withdrawal seizure usually lasts until 72 hrs from last alcohol intake. She will be continued to be monitored for recurrence of seizure and other signs of alcohol withdrawal. Will start her on a banana bag today. (2) Hypomagnesemia Is this a current diagnosis for this admission?: Yes Plan: Resolved. (3) Hypokalemia Is this a current diagnosis for this admission?: Yes Plan: Resolved. - Time Time Spent with patient: 25-34 minutes
[2018-02-22] MEDS: LORAZEPAM INJ 2 MG/1 ML VIAL IV PRN ×3 (16:16→22:58)
--- NOTE | 2018-02-22 18:20 | RADIOLOGY REPORT (SQ) ---
EXAM DESCRIPTION: CT HEAD WITHOUT COMPLETED DATE/TIME: 02/22/2018 6:12 pm REASON FOR STUDY: fell from bed, hit head on the floor COMPARISON: 02/21/2018. TECHNIQUE: Axial images acquired through the brain without intravenous contrast. Images reviewed wi th bone, brain and subdural windows. Additional sagittal and coronal reconstructions were generated. Images stored on PACS. All CT scanners at this facility use dose modulation, iterative reconstruction, and/or weight based d osing when appropriate to reduce radiation dose to as low as reasonably achievable (ALARA). [facility]: Dose Right [facility]: CareDose [facility]: Dose Right [facility]: Teradose 4D [facility]: Smart Ak?Lex RADIATION DOSE: CT Rad equipment meets quality standard of care and radiation dose reduction techniq ues were employed. CTDIvol: 53.2 mGy. DLP: 964 mGy-cm. mGy. LIMITATIONS: None. FINDINGS: VENTRICLES: Normal size and contour. CEREBRUM: No masses. No hemorrhage. No midline shift. No evidence for acute infarction. Normal gra y/white matter differentiation. No areas of low density in the white matter. CEREBELLUM: No masses. No hemorrhage. No alteration of density. No evidence for acute infarction. EXTRAAXIAL SPACES: No fluid collections. No masses. ORBITS AND GLOBE: No intra- or extraconal masses. Normal contour of globe without masses. CALVARIUM: No fracture. PARANASAL SINUSES: No fluid or mucosal thickening. SOFT TISSUES: No mass or hematoma. OTHER: No other significant finding. IMPRESSION: NORMAL BRAIN CT WITHOUT CONTRAST. EVIDENCE OF ACUTE STROKE: NO. COMMENT: Quality ID # [id number]: Final reports with documentation of one or more dose reduction techniques (e.g., Automated exposure control, adjustment of the mA and/or kV according to patient size, use of iterative reconstruction technique) TECHNICAL DOCUMENTATION: JOB ID: [id number] [employer]- All Rights Reserved Reading location - IP/workstation name: [email or web address]
--- NOTE | 2018-02-22 18:31 | RADIOLOGY REPORT (SQ) ---
EXAM DESCRIPTION: PELVIS AP COMPLETED DATE/TIME: 02/22/2018 6:18 pm REASON FOR STUDY: fell from bed,complains of back pain COMPARISON: None. NUMBER OF VIEWS: One view TECHNIQUE: AP Pelvis LIMITATIONS: None. FINDINGS: MINERALIZATION: Normal. HIPS: No acute fracture or dislocation. No worrisome bone lesions. PELVIS AND SACRUM: No acute fracture or dislocation. No worrisome bone lesions. PUBIS AND ISCHIUM: No acute fracture. LOWER LUMBAR SPINE: No significant findings as visualized. SOFT TISSUES: No findings. OTHER: No other significant finding. IMPRESSION: NEGATIVE STUDY OF THE PELVIS. COMMENT: Pelvic fractures are often occult on plain radiographs. If strong clinical suspicion for f racture, recommend CT or MR. TECHNICAL DOCUMENTATION: JOB ID: [id number] [employer]- All Rights Reserved Reading location - IP/workstation name: [email or web address]
--- NOTE | 2018-02-22 18:32 | RADIOLOGY REPORT (SQ) ---
EXAM DESCRIPTION: L SPINE WHOLE COMPLETED DATE/TIME: 02/22/2018 6:18 pm REASON FOR STUDY: lumbar xray, fell from bed,complains of back pain COMPARISON: None. NUMBER OF VIEWS: Five views including obliques. TECHNIQUE: AP, lateral, oblique, and sacral radiographic images acquired of the lumbar spine. LIMITATIONS: None. FINDINGS: MINERALIZATION: Normal. SEGMENTATION: Normal. No transitional anatomy. ALIGNMENT: Normal. VERTEBRAE: Maintained height. No fracture or worrisome bone lesion. DISCS: Preserved height. No significant osteophytes or end plate irregularity. POSTERIOR ELEMENTS: Pedicles and facets are intact. No pars defect or posterior arch defects. HARDWARE: None in the spine. PARASPINAL SOFT TISSUES: Normal. PELVIS: Intact as visualized. No fractures or worrisome bone lesions. SI joints intact. OTHER: No other significant finding. IMPRESSION: NORMAL 5 VIEW LUMBAR SPINE. TECHNICAL DOCUMENTATION: JOB ID: [id number] [employer]- All Rights Reserved Reading location - IP/workstation name: [email or web address]
--- NOTE | 2018-02-22 18:32 | RADIOLOGY REPORT (SQ) ---
EXAM DESCRIPTION: CHEST SINGLE VIEW COMPLETED DATE/TIME: 02/22/2018 6:18 pm REASON FOR STUDY: fell from bed,complains of back pain COMPARISON: None. EXAM PARAMETERS: NUMBER OF VIEWS: One view. TECHNIQUE: Single frontal radiographic view of the chest acquired. RADIATION DOSE: NA LIMITATIONS: None. FINDINGS: LUNGS AND PLEURA: No opacities, masses or pneumothorax. No pleural effusion. MEDIASTINUM AND HILAR STRUCTURES: No masses. Contour normal. HEART AND VASCULAR STRUCTURES: Heart normal in size. Normal vasculature. BONES: No acute findings. HARDWARE: None in the chest. OTHER: No other significant finding. IMPRESSION: NO ACUTE RADIOGRAPHIC FINDING IN THE CHEST. TECHNICAL DOCUMENTATION: JOB ID: [id number] [employer]- All Rights Reserved Reading location - IP/workstation name: [email or web address]
[2018-02-22] MEDS: NORMAL SALINE IV SCH ×5 (19:38)
[2018-02-22] MEDS: [UNRECOGNIZED DRUG - OTHER] IV SCH ×5 (19:38)
[2018-02-22] MEDS: POTASSIUM CHLORIDE IV SCH ×5 (19:38)
[2018-02-22] MEDS: ATENOLOL 50 MG TABLET PO SCH (21:16)
[2018-02-23 00:03] LABS: APPEARANCE,URINE SLIGHTLY-CLOUDY; BILIRUBIN,URINE NEGATIVE (NEGATIVE); COLOR,URINE YELLOW; GLUCOSE, URINE NEGATIVE (NEGATIVE); KETONES,URINE NEGATIVE (NEGATIVE); LEUKOCYTE ESTERASE,URINE LARGE (NEGATIVE); NITRITE,URINE NEGATIVE (NEGATIVE); PROTEIN,URINE NEGATIVE (NEGATIVE); URINE SPECIFIC GRAVITY 1.004; UROBILINOGEN,URINE NEGATIVE mg/dL (<2.0)
[2018-02-23] MEDS ORDERED: LORAZEPAM INJ 2 MG/1 ML VIAL ONE (00:12)
[2018-02-23 00:15] LABS: URINE AMPHETAMINES SCREEN NEGATIVE; URINE BARBITURATES SCREEN NEGATIVE; URINE BENZODIAZEPINES SCREEN NEGATIVE; URINE COCAINE SCREEN NEGATIVE; URINE MARIJUANA (THC) SCREEN NEGATIVE; URINE METHADONE SCREEN NEGATIVE; URINE PHENCYCLIDINE SCREEN NEGATIVE
[2018-02-23] MEDS ORDERED: LORAZEPAM INJ 2 MG/1 ML VIAL IV ONE (00:45)
[2018-02-23] MEDS ORDERED: OLANZAPINE INJ/PF 10 MG SDV IM ONE ×2 (00:59→01:00)
[2018-02-23] MEDS: HEPARIN SOD (PORCINE) 5,000 UNIT/ML 1 ML SYRINGE SUBCUT SCH ×5 (05:19→22:04)
[2018-02-23 05:56] LABS: ABSOLUTE BASOPHILS # (AUTO) 0.1 10^3/uL (0.0-0.2); ABSOLUTE MONOCYTES (AUTO) 0.8 10^3/uL (0.1-1.4); ABSOLUTE NEUT (AUTO) 6.4 10^3/uL (1.7-8.2); BASOPHILS % (AUTO) 0.8 % (0-2); EOSINOPHILS % (AUTO) 0.2 % (0-6); HEMATOCRIT 29.4 % (36.0-47.0); HEMOGLOBIN 10.1 g/dL (12.0-15.5); LYMPHOCYTES % (AUTO) 12.6 % (13-45); MEAN CORPUSCULAR HEMOGLOBIN 37.1 pg (27.0-33.4); MEAN CORPUSCULAR HGB CONC 34.3 g/dL (32.0-36.0); MEAN CORPUSCULAR VOLUME 108 fl (80-97); MONOCYTES % (AUTO) 9.2 % (3-13); PLATELET COUNT 178 10^3/uL (150-450); RED BLOOD COUNT 2.72 10^6/uL (3.72-5.28); RED CELL DISTRIBUTION WIDTH 18.9 % (11.5-14.0); SEGMENTED NEUTROPHILS % (AUTO) 77.2 % (42-78); TOTAL CELLS COUNTED % (AUTO) 100 %; WHITE BLOOD COUNT 8.2 10^3/uL (4.0-10.5)
[2018-02-23 06:07] LABS: ALANINE AMINOTRANSFERASE 75 U/L (9-52); ALBUMIN 4.6 g/dL (3.5-5.0); ALKALINE PHOSPHATASE 341 U/L (38-126); ANION GAP 14 (5-19); ASPARTATE AMINO TRANSFERASE 249 U/L (14-36); BILIRUBIN,DIRECT 0.6 mg/dL (0.0-0.4); BLOOD UREA NITROGEN 7 mg/dL (7-20); CALCIUM 9.1 mg/dL (8.4-10.2); CARBON DIOXIDE 25 mmol/L (22-30); CHLORIDE 100 mmol/L (98-107); GLUCOSE 131 mg/dL (75-110); SODIUM 139.2 mmol/L (137-145)
[2018-02-23] MEDS: LORAZEPAM INJ 2 MG/1 ML VIAL IV PRN ×7 (08:00→22:03)
[2018-02-23] MEDS: DOCUSATE SODIUM 100 MG CAPSULE PO SCH ×2 (10:27→17:18)
[2018-02-23] MEDS: FAMOTIDINE 20 MG TABLET PO SCH ×2 (10:27→22:02)
[2018-02-23] MEDS: MAGNESIUM SULFATE/D5W 1 GM/100 ML RTUPB IV SCH ×3 (10:44→13:17)
--- NOTE | 2018-02-23 13:17 | PDOC PROGRESS REPORT ---
Subjective Progress Note for:: 02/23/18 Subjective:: This is a 52 yr old female with a PMH of alcohol abuse who was brought in due to seizures after alcohol cessation. Patient reportedly had tonic seizures (3x) and was admitted for likely alcohol withdrawal seizures. No recurrence of seizure since admission. She had episodes of agitation and hallucinations overnight. She did become combative and was put on restraints. This morning, patient is not able to remember this provider and thinks I am Obinna. She appears to be actively withdrawing and is disoriented. Reason For Visit: ACUTE ETHANOL WITHDRAWAL WITH SEIZURES AND HYPOMAG Physical Exam Vital Signs: Temp Pulse Resp BP Pulse Ox 98.9 F 96 20 159/91 H 97 02/23/18 07:34 02/23/18 07:34 02/23/18 07:34 02/23/18 07:34 02/23/18 07:34 Intake & Output 02/22/18 02/23/18 02/24/18 06:59 06:59 06:59 Intake Total 500 1583 1121.5 Balance 500 1583 1121.5 Weight 123 lb 3.814 oz 123 lb 14.397 oz General appearance: PRESENT: no acute distress Head exam: PRESENT: atraumatic, normocephalic Eye exam: PRESENT: conjunctiva pink, EOMI, PERRLA. ABSENT: scleral icterus Ear exam: PRESENT: normal external ear exam Mouth exam: PRESENT: moist, tongue midline Neck exam: ABSENT: carotid bruit, JVD, lymphadenopathy, thyromegaly Respiratory exam: PRESENT: clear to auscultation kim. ABSENT: rales, rhonchi, wheezes Cardiovascular exam: PRESENT: RRR. ABSENT: diastolic murmur, rubs, systolic murmur Pulses: PRESENT: normal dorsalis pedis pul GI/Abdominal exam: PRESENT: normal bowel sounds, soft. ABSENT: distended, guarding, mass, organolmegaly, rebound, tenderness Rectal exam: PRESENT: deferred Neurological exam: PRESENT: altered, awake, CN II-XII grossly intact. ABSENT: motor sensory deficit Psychiatric exam: PRESENT: agitated Results Laboratory Results: 02/23/18 04:20 02/23/18 04:20 02/22/18 02/23/18 02/23/18 23:25 04:20 04:20 WBC 8.2 RBC 2.72 L Hgb 10.1 L Hct 29.4 L MCV 108 H MCH 37.1 H MCHC 34.3 RDW 18.9 H Plt Count 178 Seg Neutrophils % 77.2 Lymphocytes % 12.6 L Monocytes % 9.2 Eosinophils % 0.2 Basophils % 0.8 Absolute Neutrophils 6.4 Absolute Lymphocytes 1.0 Absolute Monocytes 0.8 Absolute Eosinophils 0.0 Absolute Basophils 0.1 Sodium 139.2 Potassium 4.0 Chloride 100 Carbon Dioxide 25 Anion Gap 14 BUN 7 Creatinine 0.85 Est GFR ( Amer) > 60 Est GFR (Non-Af Amer) > 60 Glucose 131 H Calcium 9.1 Magnesium 1.4 L Total Bilirubin 1.0 AST 249 H ALT 75 H Alkaline Phosphatase 341 H Total Protein 8.0 Albumin 4.6 Urine Color YELLOW Urine Appearance SLIGHTLY-CLOUDY Urine pH 7.0 Ur Specific [place] 1.004 Urine Protein NEGATIVE Urine Glucose (UA) NEGATIVE Urine Ketones NEGATIVE Urine Blood LARGE H Urine Nitrite NEGATIVE Ur Leukocyte Esterase LARGE H Urine WBC (Auto) >182 Urine RBC (Auto) 12 02/21/18 02/21/18 02/22/18 17:00 17:00 00:23 Creatine Kinase 293 H 304 H CK-MB (CK-2) 4.96 H Troponin I 0.060 02/22/18 02/22/18 02/22/18 00:23 06:36 06:36 Creatine Kinase 246 H Cancelled CK-MB (CK-2) 4.47 Troponin I 0.063 02/22/18 06:36 Creatine Kinase CK-MB (CK-2) 3.09 Troponin I 0.047 Impressions: Head CT 02/22/18 17:18 IMPRESSION: NORMAL BRAIN CT WITHOUT CONTRAST. EVIDENCE OF ACUTE STROKE: NO. Pelvis X-Ray 02/22/18 17:37 IMPRESSION: NEGATIVE STUDY OF THE PELVIS. Lumbar Spine X-Ray 02/22/18 17:39 IMPRESSION: NORMAL 5 VIEW LUMBAR SPINE. Chest X-Ray 02/22/18 17:40 IMPRESSION: NO ACUTE RADIOGRAPHIC FINDING IN THE CHEST. Assessment & Plan - Diagnosis (1) Alcohol withdrawal Qualifiers: Complication of substance-induced condition: with unspecified complication Qualified Code(s): F10.239 - Alcohol dependence with withdrawal, unspecified Is this a current diagnosis for this admission?: Yes Plan: The onset of her seizures are more consistent with alcohol withdrawal seizures. She was started on clonazepam, diazepam 10 mg qhourly prn and Nubain. Discontinued above regimen and switched to Ativan 3 mg q2h prn. Patient is actively withdrawing. Continue Ativan and banana bag. (2) Alcohol withdrawal seizure Is this a current diagnosis for this admission?: Yes Plan: As per number 1. (3) Hypomagnesemia Is this a current diagnosis for this admission?: Yes Plan: Will replace Mg today. (4) Hypokalemia Is this a current diagnosis for this admission?: Yes Plan: Resolved. - Time Time Spent with patient: 25-34 minutes
[2018-02-23] MEDS: NORMAL SALINE 1000 ML 1,000 ML IV PRN (14:07)
[2018-02-23] MEDS: POTASSIUM CHLORIDE IV SCH ×5 (17:17)
[2018-02-23] MEDS: [UNRECOGNIZED DRUG - OTHER] IV SCH ×5 (17:17)
[2018-02-23] MEDS: NORMAL SALINE IV SCH ×5 (17:17)
[2018-02-23] MEDS: ATENOLOL 50 MG TABLET PO SCH (22:02)
[2018-02-24] MEDS: LORAZEPAM INJ 2 MG/1 ML VIAL IV PRN ×9 (00:38→23:34)
[2018-02-24] MEDS: HEPARIN SOD (PORCINE) 5,000 UNIT/ML 1 ML SYRINGE SUBCUT SCH ×3 (05:24→21:30)
[2018-02-24 05:43] LABS: HEMOGLOBIN 9.1 g/dL (12.0-15.5); MEAN CORPUSCULAR VOLUME 109 fl (80-97); PLATELET COUNT 164 10^3/uL (150-450); RED BLOOD COUNT 2.39 10^6/uL (3.72-5.28); RED CELL DISTRIBUTION WIDTH 19.5 % (11.5-14.0); WHITE BLOOD COUNT 7.9 10^3/uL (4.0-10.5)
[2018-02-24 06:08] LABS: ANION GAP 10 (5-19); BLOOD UREA NITROGEN 9 mg/dL (7-20); CALCIUM 9.1 mg/dL (8.4-10.2); CARBON DIOXIDE 23 mmol/L (22-30); CHLORIDE 107 mmol/L (98-107); GLUCOSE 105 mg/dL (75-110); POTASSIUM 4.2 mmol/L (3.6-5.0); SODIUM 139.7 mmol/L (137-145)
[2018-02-24] MEDS: NORMAL SALINE 1000 ML 1,000 ML IV PRN ×2 (06:41→14:58)
[2018-02-24] MEDS: DOCUSATE SODIUM 100 MG CAPSULE PO SCH ×2 (09:25→17:36)
[2018-02-24] MEDS: FAMOTIDINE 20 MG TABLET PO SCH ×2 (09:25→21:30)
--- NOTE | 2018-02-24 15:43 | PDOC PROGRESS REPORT ---
Subjective Progress Note for:: 02/24/18 Subjective:: This is a 52 yr old female with a PMH of alcohol abuse who was brought in due to seizures after alcohol cessation. Patient reportedly had tonic seizures (3x) and was admitted for likely alcohol withdrawal seizures. No recurrence of seizure since admission. 02/23/18: She had episodes of agitation and hallucinations overnight. She did become combative and was put on restraints. This morning, patient is not able to remember this provider and thinks I am Obinna. She appears to be actively withdrawing and is disoriented. 02/24/18: Patient was less agitated today. She did continue to receive Ativan. Hallucinations were also not as frequent compared yesterday and she is less combative today. She just got Ativan this morning and is asleep. Reason For Visit: ACUTE ETHANOL WITHDRAWAL WITH SEIZURES AND HYPOMAG Physical Exam Vital Signs: Temp Pulse Resp BP Pulse Ox 97.8 F 70 14 162/97 H 95 02/24/18 07:59 02/24/18 14:00 02/24/18 07:59 02/24/18 07:59 02/24/18 07:59 Intake & Output 02/23/18 02/24/18 02/25/18 06:59 06:59 06:59 Intake Total 1583 2884.5 2021.5 Balance 1583 2884.5 2021.5 Weight 123 lb 14.397 oz 120 lb 9.486 oz General appearance: PRESENT: no acute distress, well-developed, well-nourished Head exam: PRESENT: atraumatic, normocephalic Eye exam: PRESENT: conjunctiva pink, EOMI, PERRLA. ABSENT: scleral icterus Ear exam: PRESENT: normal external ear exam Mouth exam: PRESENT: moist, tongue midline Neck exam: ABSENT: carotid bruit, JVD, lymphadenopathy, thyromegaly Respiratory exam: PRESENT: clear to auscultation kim. ABSENT: rales, rhonchi, wheezes Cardiovascular exam: PRESENT: RRR. ABSENT: diastolic murmur, rubs, systolic murmur Pulses: PRESENT: normal dorsalis pedis pul GI/Abdominal exam: PRESENT: normal bowel sounds, soft. ABSENT: distended, guarding, mass, organolmegaly, rebound, tenderness Rectal exam: PRESENT: deferred Extremities exam: PRESENT: full ROM. ABSENT: calf tenderness, clubbing, pedal edema Neurological exam: PRESENT: other - asleep, was just given Ativan Results Laboratory Results: 02/24/18 05:04 02/24/18 05:04 02/24/18 02/24/18 05:04 05:04 WBC 7.9 RBC 2.39 L Hgb 9.1 L Hct 26.0 L MCV 109 H MCH 38.0 H MCHC 35.0 RDW 19.5 H Plt Count 164 Sodium 139.7 Potassium 4.2 Chloride 107 Carbon Dioxide 23 Anion Gap 10 BUN 9 Creatinine 0.92 Est GFR ( Amer) > 60 Est GFR (Non-Af Amer) > 60 Glucose 105 Calcium 9.1 Magnesium 2.3 02/21/18 02/21/18 02/22/18 17:00 17:00 00:23 Creatine Kinase 293 H 304 H CK-MB (CK-2) 4.96 H Troponin I 0.060 02/22/18 02/22/18 02/22/18 00:23 06:36 06:36 Creatine Kinase 246 H Cancelled CK-MB (CK-2) 4.47 Troponin I 0.063 02/22/18 06:36 Creatine Kinase CK-MB (CK-2) 3.09 Troponin I 0.047 Impressions: Head CT 02/22/18 17:18 IMPRESSION: NORMAL BRAIN CT WITHOUT CONTRAST. EVIDENCE OF ACUTE STROKE: NO. Pelvis X-Ray 02/22/18 17:37 IMPRESSION: NEGATIVE STUDY OF THE PELVIS. Lumbar Spine X-Ray 02/22/18 17:39 IMPRESSION: NORMAL 5 VIEW LUMBAR SPINE. Chest X-Ray 02/22/18 17:40 IMPRESSION: NO ACUTE RADIOGRAPHIC FINDING IN THE CHEST. Assessment & Plan - Diagnosis (1) Alcohol withdrawal Qualifiers: Complication of substance-induced condition: with unspecified complication Qualified Code(s): F10.239 - Alcohol dependence with withdrawal, unspecified Is this a current diagnosis for this admission?: Yes Plan: The onset of her seizures are more consistent with alcohol withdrawal seizures. She was started on clonazepam, diazepam 10 mg qhourly prn and Nubain. Discontinued above regimen and switched to Ativan 3 mg q2h prn. She is less combative and agitated today. Continue Ativan prn and banana bag at night. Continue IV fluids. (2) Alcohol withdrawal seizure Is this a current diagnosis for this admission?: Yes Plan: As per number 1. (3) Hypomagnesemia Is this a current diagnosis for this admission?: Yes Plan: Resolved. (4) Hypokalemia Is this a current diagnosis for this admission?: Yes Plan: Resolved. - Time Time Spent with patient: 25-34 minutes
[2018-02-24] MEDS: HYDRALAZINE HCL INJ/PF 20 MG/1 ML SDV IV PRN (17:11)
[2018-02-24] MEDS: POTASSIUM CHLORIDE IV SCH ×5 (17:12)
[2018-02-24] MEDS: [UNRECOGNIZED DRUG - OTHER] IV SCH ×5 (17:12)
[2018-02-24] MEDS: NORMAL SALINE IV SCH ×5 (17:12)
[2018-02-24] MEDS: ATENOLOL 50 MG TABLET PO SCH (21:30)
[2018-02-25] MEDS: HYDRALAZINE HCL INJ/PF 20 MG/1 ML SDV IV PRN ×2 (04:41→20:35)
[2018-02-25] MEDS: LORAZEPAM INJ 2 MG/1 ML VIAL IV PRN ×6 (04:41→19:58)
[2018-02-25] MEDS: HEPARIN SOD (PORCINE) 5,000 UNIT/ML 1 ML SYRINGE SUBCUT SCH ×3 (05:03→23:13)
[2018-02-25] MEDS: NORMAL SALINE 1000 ML 1,000 ML IV PRN ×2 (06:39→12:45)
--- NOTE | 2018-02-25 08:33 | RADIOLOGY REPORT (SQ) ---
EXAM DESCRIPTION: CHEST SINGLE VIEW COMPLETED DATE/TIME: 02/25/2018 8:18 am REASON FOR STUDY: assess for aspiration PNA COMPARISON: PA chest 02/22/2018. EXAM PARAMETERS: NUMBER OF VIEWS: One view. TECHNIQUE: AP semi upright view. . RADIATION DOSE: NA LIMITATIONS: None. FINDINGS: LUNGS AND PLEURA: No acute infiltrates or effusions. MEDIASTINUM AND HILAR STRUCTURES: No masses. Contour normal. HEART AND VASCULAR STRUCTURES: The heart is unchanged in size. The pulmonary vasculature appears mor e prominent which could be due to AP semi-upright technique. BONES: No acute findings. HARDWARE: None in the chest. OTHER: Chest leads are in place. IMPRESSION: Considering differences in technique. No significant change. TECHNICAL DOCUMENTATION: JOB ID: [id number] [employer]- All Rights Reserved Reading location - IP/workstation name: [email or web address]
[2018-02-25] MEDS: DOCUSATE SODIUM 100 MG CAPSULE PO SCH ×2 (09:54→17:01)
[2018-02-25] MEDS: FAMOTIDINE 20 MG TABLET PO SCH ×2 (09:54→23:13)
--- NOTE | 2018-02-25 15:48 | PDOC PROGRESS REPORT ---
Subjective Progress Note for:: 02/25/18 Subjective:: This is a 52 yr old female with a PMH of alcohol abuse who was brought in due to seizures after alcohol cessation. Patient reportedly had tonic seizures (3x) and was admitted for likely alcohol withdrawal seizures. No recurrence of seizure since admission. 02/23/18: She had episodes of agitation and hallucinations overnight. She did become combative and was put on restraints. This morning, patient is not able to remember this provider and thinks I am Obinna. She appears to be actively withdrawing and is disoriented. 02/24/18: Patient was less agitated today. She did continue to receive Ativan. Hallucinations were also not as frequent compared yesterday and she is less combative today. She just got Ativan this morning and is asleep. 02/25/18: She was just given Ativan and is sleepy but arousable. No prominent hallucinations. Reason For Visit: ACUTE ETHANOL WITHDRAWAL WITH SEIZURES AND HYPOMAG Physical Exam Vital Signs: Temp Pulse Resp BP Pulse Ox 98.7 F 76 28 H 141/84 H 96 02/25/18 04:26 02/25/18 14:00 02/25/18 04:26 02/25/18 06:45 02/25/18 04:26 Intake & Output 02/24/18 02/25/18 02/26/18 06:59 06:59 06:59 Intake Total 2884.5 4101.5 1000 Balance 2884.5 4101.5 1000 Weight 120 lb 9.486 oz 121 lb 11.123 oz General appearance: PRESENT: no acute distress, well-developed, well-nourished Head exam: PRESENT: atraumatic, normocephalic Eye exam: PRESENT: conjunctiva pink, EOMI, PERRLA. ABSENT: scleral icterus Ear exam: PRESENT: normal external ear exam Mouth exam: PRESENT: moist, tongue midline Neck exam: ABSENT: carotid bruit, JVD, lymphadenopathy, thyromegaly Respiratory exam: PRESENT: clear to auscultation kim. ABSENT: rales, rhonchi, wheezes Cardiovascular exam: PRESENT: RRR. ABSENT: diastolic murmur, rubs, systolic murmur Pulses: PRESENT: normal dorsalis pedis pul GI/Abdominal exam: PRESENT: normal bowel sounds, soft. ABSENT: distended, guarding, mass, organolmegaly, rebound, tenderness Rectal exam: PRESENT: deferred Neurological exam: PRESENT: altered, other - sleepy-just got Ativan Results Laboratory Results: 02/24/18 05:04 02/24/18 05:04 02/21/18 02/21/18 02/22/18 17:00 17:00 00:23 Creatine Kinase 293 H 304 H CK-MB (CK-2) 4.96 H Troponin I 0.060 02/22/18 02/22/18 02/22/18 00:23 06:36 06:36 Creatine Kinase 246 H Cancelled CK-MB (CK-2) 4.47 Troponin I 0.063 02/22/18 06:36 Creatine Kinase CK-MB (CK-2) 3.09 Troponin I 0.047 Impressions: Head CT 02/22/18 17:18 IMPRESSION: NORMAL BRAIN CT WITHOUT CONTRAST. EVIDENCE OF ACUTE STROKE: NO. Pelvis X-Ray 02/22/18 17:37 IMPRESSION: NEGATIVE STUDY OF THE PELVIS. Lumbar Spine X-Ray 02/22/18 17:39 IMPRESSION: NORMAL 5 VIEW LUMBAR SPINE. Chest X-Ray 02/25/18 07:00 IMPRESSION: Considering differences in technique. No significant change. Assessment & Plan - Diagnosis (1) Alcohol withdrawal Qualifiers: Complication of substance-induced condition: with unspecified complication Qualified Code(s): F10.239 - Alcohol dependence with withdrawal, unspecified Is this a current diagnosis for this admission?: Yes Plan: The onset of her seizures are more consistent with alcohol withdrawal seizures. She was started on clonazepam, diazepam 10 mg qhourly prn and Nubain. Discontinued above regimen and switched to Ativan 3 mg q2h prn. Continue Ativan prn and banana bag at night. Continue IV fluids. (2) Alcohol withdrawal seizure Is this a current diagnosis for this admission?: Yes Plan: As per number 1. No recurrence of seizure since admission. (3) Hypomagnesemia Is this a current diagnosis for this admission?: Yes Plan: Resolved. (4) Hypokalemia Is this a current diagnosis for this admission?: Yes Plan: Resolved. - Time Time Spent with patient: 15-24 minutes
[2018-02-25] MEDS: [UNRECOGNIZED DRUG - OTHER] IV SCH ×5 (16:59)
[2018-02-25] MEDS: NORMAL SALINE IV SCH ×5 (16:59)
[2018-02-25] MEDS: POTASSIUM CHLORIDE IV SCH ×5 (16:59)
[2018-02-25] MEDS: ATENOLOL 50 MG TABLET PO SCH (23:13)
[2018-02-26] MEDS: HEPARIN SOD (PORCINE) 5,000 UNIT/ML 1 ML SYRINGE SUBCUT SCH ×3 (06:36→21:56)
[2018-02-26] MEDS: NORMAL SALINE 1000 ML 1,000 ML IV PRN ×2 (06:41→14:38)
[2018-02-26] MEDS: LORAZEPAM INJ 2 MG/1 ML VIAL IV PRN ×3 (09:05→22:20)
[2018-02-26] MEDS: HYDRALAZINE HCL INJ/PF 20 MG/1 ML SDV IV PRN (09:08)
[2018-02-26] MEDS: FAMOTIDINE 20 MG TABLET PO SCH ×2 (09:44→22:21)
[2018-02-26] MEDS: DOCUSATE SODIUM 100 MG CAPSULE PO SCH ×2 (09:44→17:36)
--- NOTE | 2018-02-26 14:15 | PDOC PROGRESS REPORT ---
Subjective Progress Note for:: 02/26/18 Subjective:: This is a 52 yr old female with a PMH of alcohol abuse who was brought in due to seizures after alcohol cessation. Patient reportedly had tonic seizures (3x) and was admitted for likely alcohol withdrawal seizures. No recurrence of seizure since admission. 02/23/18: She had episodes of agitation and hallucinations overnight. She did become combative and was put on restraints. This morning, patient is not able to remember this provider and thinks I am Obinna. She appears to be actively withdrawing and is disoriented. 02/24/18: Patient was less agitated today. She did continue to receive Ativan. Hallucinations were also not as frequent compared yesterday and she is less combative today. She just got Ativan this morning and is asleep. 02/25/18: She was just given Ativan and is sleepy but arousable. No prominent hallucinations. 02/26/18: Patient is requiring less Ativan. She was given a dose last night at 8 pm and another dose this morning at 9 am. She is arousable. She is able to tell me her name and knows she is in a hospital but thinks I am Regan. No fever or chills. Reason For Visit: ACUTE ETHANOL WITHDRAWAL WITH SEIZURES AND HYPOMAG Physical Exam Vital Signs: Temp Pulse Resp BP Pulse Ox 97.7 F 80 20 138/87 H 97 02/26/18 11:40 02/26/18 13:51 02/26/18 11:40 02/26/18 11:40 02/26/18 11:40 Intake & Output 02/25/18 02/26/18 02/27/18 06:59 06:59 06:59 Intake Total 4101.5 1729 1021.5 Balance 4101.5 1729 1021.5 Weight 121 lb 11.123 oz General appearance: PRESENT: no acute distress, well-developed, well-nourished Head exam: PRESENT: atraumatic, normocephalic Eye exam: PRESENT: conjunctiva pink, EOMI, PERRLA. ABSENT: scleral icterus Ear exam: PRESENT: normal external ear exam Mouth exam: PRESENT: moist, tongue midline Neck exam: ABSENT: carotid bruit, JVD, lymphadenopathy, thyromegaly Respiratory exam: PRESENT: clear to auscultation kim. ABSENT: rales, rhonchi, wheezes Cardiovascular exam: PRESENT: RRR. ABSENT: diastolic murmur, rubs, systolic murmur Pulses: PRESENT: normal dorsalis pedis pul GI/Abdominal exam: PRESENT: normal bowel sounds, soft. ABSENT: distended, guarding, mass, organolmegaly, rebound, tenderness Rectal exam: PRESENT: deferred Neurological exam: PRESENT: altered, oriented to person, oriented to place, CN II-XII grossly intact. ABSENT: oriented to time, oriented to situation, motor sensory deficit Results Laboratory Results: 02/24/18 05:04 02/24/18 05:04 02/21/18 02/21/18 02/22/18 17:00 17:00 00:23 Creatine Kinase 293 H 304 H CK-MB (CK-2) 4.96 H Troponin I 0.060 02/22/18 02/22/18 02/22/18 00:23 06:36 06:36 Creatine Kinase 246 H Cancelled CK-MB (CK-2) 4.47 Troponin I 0.063 02/22/18 06:36 Creatine Kinase CK-MB (CK-2) 3.09 Troponin I 0.047 Impressions: Head CT 02/22/18 17:18 IMPRESSION: NORMAL BRAIN CT WITHOUT CONTRAST. EVIDENCE OF ACUTE STROKE: NO. Pelvis X-Ray 02/22/18 17:37 IMPRESSION: NEGATIVE STUDY OF THE PELVIS. Lumbar Spine X-Ray 02/22/18 17:39 IMPRESSION: NORMAL 5 VIEW LUMBAR SPINE. Chest X-Ray 02/25/18 07:00 IMPRESSION: Considering differences in technique. No significant change. Assessment & Plan - Diagnosis (1) Alcohol withdrawal Qualifiers: Complication of substance-induced condition: with unspecified complication Qualified Code(s): F10.239 - Alcohol dependence with withdrawal, unspecified Is this a current diagnosis for this admission?: Yes Plan: Improving. Reduce Ativan to q4h prn. Will switch banana bag to PO tomorrow. Continue IV fluids. (2) Alcohol withdrawal seizure Is this a current diagnosis for this admission?: Yes Plan: The onset of her seizures are more consistent with alcohol withdrawal seizures. She was started on clonazepam, diazepam 10 mg qhourly prn and Nubain. Discontinued above regimen and switched to Ativan prn. No recurrence of seizure since admission. (3) Hypomagnesemia Is this a current diagnosis for this admission?: Yes Plan: Resolved. (4) Hypokalemia Is this a current diagnosis for this admission?: Yes Plan: Resolved. - Time Time Spent with patient: 25-34 minutes
[2018-02-26] MEDS: NORMAL SALINE IV SCH ×5 (17:41)
[2018-02-26] MEDS: POTASSIUM CHLORIDE IV SCH ×5 (17:41)
[2018-02-26] MEDS: [UNRECOGNIZED DRUG - OTHER] IV SCH ×5 (17:41)
[2018-02-26] MEDS: NICOTINE 21 MG/24 HR PATCH.TD24 TD PRN (17:46)
[2018-02-26] MEDS: ATENOLOL 50 MG TABLET PO SCH (22:20)
[2018-02-27] MEDS: HEPARIN SOD (PORCINE) 5,000 UNIT/ML 1 ML SYRINGE SUBCUT SCH ×3 (05:40→21:02)
[2018-02-27 06:57] LABS: HEMATOCRIT 24.8 % (36.0-47.0); HEMOGLOBIN 8.6 g/dL (12.0-15.5); MEAN CORPUSCULAR HEMOGLOBIN 37.7 pg (27.0-33.4); MEAN CORPUSCULAR HGB CONC 34.5 g/dL (32.0-36.0); MEAN CORPUSCULAR VOLUME 109 fl (80-97); PLATELET COUNT 220 10^3/uL (150-450); RED BLOOD COUNT 2.27 10^6/uL (3.72-5.28); RED CELL DISTRIBUTION WIDTH 20.8 % (11.5-14.0); WHITE BLOOD COUNT 5.1 10^3/uL (4.0-10.5)
[2018-02-27 07:01] LABS: ANION GAP 7 (5-19); BLOOD UREA NITROGEN 10 mg/dL (7-20); CALCIUM 8.4 mg/dL (8.4-10.2); CARBON DIOXIDE 22 mmol/L (22-30); CHLORIDE 110 mmol/L (98-107); GLUCOSE 89 mg/dL (75-110); POTASSIUM 3.5 mmol/L (3.6-5.0); SODIUM 139.1 mmol/L (137-145)
[2018-02-27 07:53] LABS: ABSOLUTE LYMPHOCYTES# (MANUAL) 0.9 10^3/uL (0.5-4.7); ABSOLUTE MONOCYTES # (MANUAL) 0.7 10^3/uL (0.1-1.4); ABSOLUTE NEUTROPHILS# (MANUAL) 3.3 10^3/uL (1.7-8.2); BAND NEUTROPHILS % (MANUAL) 1 % (3-5); BASOPHILS % (MANUAL) 1 % (0-2); EOSINOPHILS % (MANUAL) 3 % (0-6); LYMPHOCYTES % (MANUAL) 17 % (13-45); MONOCYTES % (MANUAL) 14 % (3-13); NUCLEATED RED BLOOD CELLS 1 /100 WBC (0); SEGMENTED NEUTROPHILS % (MAN) 64 % (42-78); TOTAL CELLS COUNTED 100
[2018-02-27 07:54] LABS: ANISOCYTOSIS 2+; PLATELET COMMENT ADEQUATE; POLYCHROMASIA SLIGHT
[2018-02-27] MEDS ORDERED: POTASSIUM CHLORIDE 10 MEQ CAPSULE.ER PO ONE (08:00)
[2018-02-27] MEDS ORDERED: LABETALOL HCL INJ 20 MG/4 ML DISP.SYRIN IV PRN (08:41)
[2018-02-27] MEDS ORDERED: MAGNESIUM SULFATE 4 GM/D5W 100 ML IV ONE (09:15)
[2018-02-27] MEDS: DOCUSATE SODIUM 100 MG CAPSULE PO SCH ×2 (09:17→17:59)
[2018-02-27] MEDS: FAMOTIDINE 20 MG TABLET PO SCH ×2 (09:18→21:09)
--- NOTE | 2018-02-27 12:01 | PDOC PROGRESS REPORT ---
Subjective Progress Note for:: 02/27/18 Subjective:: This is a 52 yr old female with a PMH of alcohol abuse who was brought in due to seizures after alcohol cessation. Patient reportedly had tonic seizures (3x) and was admitted for likely alcohol withdrawal seizures. No recurrence of seizure since admission. 02/23/18: She had episodes of agitation and hallucinations overnight. She did become combative and was put on restraints. This morning, patient is not able to remember this provider and thinks I am Obinna. She appears to be actively withdrawing and is disoriented. 02/24/18: Patient was less agitated today. She did continue to receive Ativan. Hallucinations were also not as frequent compared yesterday and she is less combative today. She just got Ativan this morning and is asleep. 02/25/18: She was just given Ativan and is sleepy but arousable. No prominent hallucinations. 02/26/18: Patient is requiring less Ativan. She was given a dose last night at 8 pm and another dose this morning at 9 am. She is arousable. She is able to tell me her name and knows she is in a hospital but thinks I am Regan. No fever or chills. 02/27/18: No acute event overnight. She continues to improve. She did not require Ativan overnight. She is awake this morning, is more fluent and more oriented. She is able to tell me her name, month and year and knows she is in a hospital but thinks I'm a vandana from a "[facility]". Reason For Visit: ACUTE ETHANOL WITHDRAWAL WITH SEIZURES AND HYPOMAG Physical Exam Vital Signs: Temp Pulse Resp BP Pulse Ox 98.2 F 64 16 172/92 H 99 02/27/18 07:46 02/27/18 07:46 02/27/18 07:46 02/27/18 07:46 02/27/18 07:46 Intake & Output 02/26/18 02/27/18 02/28/18 06:59 06:59 06:59 Intake Total 1729 3863.5 1021.5 Output Total 0 Balance 1729 3863.5 1021.5 Weight 136 lb 14.513 oz General appearance: PRESENT: no acute distress, well-developed, well-nourished Head exam: PRESENT: atraumatic, normocephalic Eye exam: PRESENT: conjunctiva pink, EOMI, PERRLA. ABSENT: scleral icterus Ear exam: PRESENT: normal external ear exam Mouth exam: PRESENT: moist, tongue midline Neck exam: ABSENT: carotid bruit, JVD, lymphadenopathy, thyromegaly Respiratory exam: PRESENT: clear to auscultation kim. ABSENT: rales, rhonchi, wheezes Cardiovascular exam: PRESENT: RRR. ABSENT: diastolic murmur, rubs, systolic murmur Pulses: PRESENT: normal dorsalis pedis pul GI/Abdominal exam: PRESENT: normal bowel sounds, soft. ABSENT: distended, guarding, mass, organolmegaly, rebound, tenderness Rectal exam: PRESENT: deferred Neurological exam: PRESENT: alert, oriented to person, oriented to place, oriented to time, oriented to situation, CN II-XII grossly intact. ABSENT: motor sensory deficit Results Laboratory Results: 02/27/18 05:44 02/27/18 05:44 02/27/18 02/27/18 05:44 05:44 WBC 5.1 RBC 2.27 L Hgb 8.6 L Hct 24.8 L MCV 109 H MCH 37.7 H MCHC 34.5 RDW 20.8 H Plt Count 220 Seg Neutrophils % Not Reportable Lymphocytes % Not Reportable Monocytes % Not Reportable Eosinophils % Not Reportable Basophils % Not Reportable Absolute Neutrophils Not Reportable Absolute Lymphocytes Not Reportable Absolute Monocytes Not Reportable Absolute Eosinophils Not Reportable Absolute Basophils Not Reportable Sodium 139.1 Potassium 3.5 L Chloride 110 H Carbon Dioxide 22 Anion Gap 7 BUN 10 Creatinine 0.64 Est GFR ( Amer) > 60 Est GFR (Non-Af Amer) > 60 Glucose 89 Calcium 8.4 Magnesium 1.2 L* 02/21/18 02/21/18 02/22/18 17:00 17:00 00:23 Creatine Kinase 293 H 304 H CK-MB (CK-2) 4.96 H Troponin I 0.060 02/22/18 02/22/18 02/22/18 00:23 06:36 06:36 Creatine Kinase 246 H Cancelled CK-MB (CK-2) 4.47 Troponin I 0.063 02/22/18 06:36 Creatine Kinase CK-MB (CK-2) 3.09 Troponin I 0.047 Impressions: Head CT 02/22/18 17:18 IMPRESSION: NORMAL BRAIN CT WITHOUT CONTRAST. EVIDENCE OF ACUTE STROKE: NO. Pelvis X-Ray 02/22/18 17:37 IMPRESSION: NEGATIVE STUDY OF THE PELVIS. Lumbar Spine X-Ray 02/22/18 17:39 IMPRESSION: NORMAL 5 VIEW LUMBAR SPINE. Chest X-Ray 02/25/18 07:00 IMPRESSION: Considering differences in technique. No significant change. Assessment & Plan - Diagnosis (1) Alcohol withdrawal Qualifiers: Complication of substance-induced condition: with unspecified complication Qualified Code(s): F10.239 - Alcohol dependence with withdrawal, unspecified Is this a current diagnosis for this admission?: Yes Plan: Resolving. Reduced Ativan to q4h prn. Continue PO folate and thiamine. Decrease fluids to 50 cc/hr as she is now eating. (2) Alcohol withdrawal seizure Is this a current diagnosis for this admission?: Yes Plan: The onset of her seizures are more consistent with alcohol withdrawal seizures. She was started on clonazepam, diazepam 10 mg qhourly prn and Nubain. Discontinued above regimen and switched to Ativan prn. No recurrence of seizure since admission. (3) Hypomagnesemia Is this a current diagnosis for this admission?: Yes Plan: Mg is low today at 1.2. Will replace with IV Mg. (4) Hypokalemia Is this a current diagnosis for this admission?: Yes Plan: Potassium at 3.5 today. Will give 40 meqs PO. - Time Time Spent with patient: 25-34 minutes
[2018-02-27] MEDS: LORAZEPAM INJ 2 MG/1 ML VIAL IV PRN ×2 (15:32→21:09)
[2018-02-27] MEDS: NICOTINE 21 MG/24 HR PATCH.TD24 TD PRN (15:46)
[2018-02-27 17:25] LABS: ANION GAP 10 (5-19); BLOOD UREA NITROGEN 9 mg/dL (7-20); CARBON DIOXIDE 21 mmol/L (22-30); CHLORIDE 105 mmol/L (98-107); GLUCOSE 110 mg/dL (75-110); POTASSIUM 3.7 mmol/L (3.6-5.0); SODIUM 136.3 mmol/L (137-145)
[2018-02-27] MEDS: CEFTRIAXONE 1 GM/D5W RTU 1 GM/50 ML RTUPB IV SCH (19:00)
[2018-02-27] MEDS ORDERED: CEFTRIAXONE 1 GM/D5W RTU 1 GM/50 ML RTUPB IV ONE (19:14)
[2018-02-27] MEDS: ATENOLOL 50 MG TABLET PO SCH (21:08)
[2018-02-28] MEDS: LORAZEPAM INJ 2 MG/1 ML VIAL IV PRN (01:11)
[2018-02-28] MEDS: HEPARIN SOD (PORCINE) 5,000 UNIT/ML 1 ML SYRINGE SUBCUT SCH ×3 (05:11→22:10)
[2018-02-28] MEDS: DOCUSATE SODIUM 100 MG CAPSULE PO SCH ×2 (09:26→17:00)
[2018-02-28] MEDS: FAMOTIDINE 20 MG TABLET PO SCH ×2 (09:31→22:57)
[2018-02-28] MEDS: MULTIVITAMIN TABLET PO SCH (09:31)
[2018-02-28] MEDS: THIAMINE HCL 100 MG TABLET PO SCH (09:31)
[2018-02-28] MEDS ORDERED: LORAZEPAM INJ 2 MG/1 ML VIAL IV PRN (13:48)
--- NOTE | 2018-02-28 13:49 | PDOC PROGRESS REPORT ---
Subjective Progress Note for:: 02/28/18 Subjective:: This is a 52 yr old female with a PMH of alcohol abuse who was brought in due to seizures after alcohol cessation. Patient reportedly had tonic seizures (3x) and was admitted for likely alcohol withdrawal seizures. No recurrence of seizure since admission. 02/23/18: She had episodes of agitation and hallucinations overnight. She did become combative and was put on restraints. This morning, patient is not able to remember this provider and thinks I am Obinna. She appears to be actively withdrawing and is disoriented. 02/24/18: Patient was less agitated today. She did continue to receive Ativan. Hallucinations were also not as frequent compared yesterday and she is less combative today. She just got Ativan this morning and is asleep. 02/25/18: She was just given Ativan and is sleepy but arousable. No prominent hallucinations. 02/26/18: Patient is requiring less Ativan. She was given a dose last night at 8 pm and another dose this morning at 9 am. She is arousable. She is able to tell me her name and knows she is in a hospital but thinks I am Regan. No fever or chills. 02/27/18: No acute event overnight. She continues to improve. She did not require Ativan overnight. She is awake this morning, is more fluent and more oriented. She is able to tell me her name, month and year and knows she is in a hospital but thinks I'm a vandana from "[facility]". 02/28/18: Patient had an episode of restlessness overnight but only required one dose of Ativan at 1 am. She is more awake and oriented this morning. She is able to tell me her name, and that she is in a hospital and recognized me today as her doctor. She is able to tell me it's 2019. But she does admit to seeing "bugs" and hearing voices occasionally last night. Reason For Visit: ACUTE ETHANOL WITHDRAWAL WITH SEIZURES AND HYPOMAG Physical Exam Vital Signs: Temp Pulse Resp BP Pulse Ox 98.1 F 61 20 130/73 H 96 02/28/18 07:41 02/28/18 07:41 02/28/18 07:41 02/28/18 07:41 02/28/18 07:41 Intake & Output 02/27/18 02/28/18 03/01/18 06:59 06:59 06:59 Intake Total 3863.5 2337.5 Output Total 0 1000 Balance 3863.5 1337.5 Weight 136 lb 14.513 oz 128 lb 11.999 oz General appearance: PRESENT: no acute distress, well-developed, well-nourished Head exam: PRESENT: atraumatic, normocephalic Eye exam: PRESENT: conjunctiva pink, EOMI, PERRLA. ABSENT: scleral icterus Ear exam: PRESENT: normal external ear exam Mouth exam: PRESENT: moist, tongue midline Neck exam: ABSENT: carotid bruit, JVD, lymphadenopathy, thyromegaly Respiratory exam: PRESENT: rhonchi. ABSENT: rales, wheezes Cardiovascular exam: PRESENT: RRR. ABSENT: diastolic murmur, rubs, systolic m urmur Pulses: PRESENT: normal dorsalis pedis pul GI/Abdominal exam: PRESENT: normal bowel sounds, soft. ABSENT: distended, guarding, mass, organolmegaly, rebound, tenderness Rectal exam: PRESENT: deferred Neurological exam: PRESENT: awake, oriented to person, oriented to place, oriented to time, CN II-XII grossly intact. ABSENT: motor sensory deficit Results Laboratory Results: 02/27/18 05:44 02/27/18 16:58 02/27/18 16:58 Sodium 136.3 L Potassium 3.7 Chloride 105 Carbon Dioxide 21 L Anion Gap 10 BUN 9 Creatinine 0.67 Est GFR ( Amer) > 60 Est GFR (Non-Af Amer) > 60 Glucose 110 Calcium 9.0 Magnesium 2.2 D 02/21/18 02/21/18 02/22/18 17:00 17:00 00:23 Creatine Kinase 293 H 304 H CK-MB (CK-2) 4.96 H Troponin I 0.060 02/22/18 02/22/18 02/22/18 00:23 06:36 06:36 Creatine Kinase 246 H Cancelled CK-MB (CK-2) 4.47 Troponin I 0.063 02/22/18 06:36 Creatine Kinase CK-MB (CK-2) 3.09 Troponin I 0.047 Impressions: Head CT 02/22/18 17:18 IMPRESSION: NORMAL BRAIN CT WITHOUT CONTRAST. EVIDENCE OF ACUTE STROKE: NO. Pelvis X-Ray 02/22/18 17:37 IMPRESSION: NEGATIVE STUDY OF THE PELVIS. Lumbar Spine X-Ray 02/22/18 17:39 IMPRESSION: NORMAL 5 VIEW LUMBAR SPINE. Chest X-Ray 02/25/18 07:00 IMPRESSION: Considering differences in technique. No significant change. Assessment & Plan - Diagnosis (1) Alcohol withdrawal Qualifiers: Complication of substance-induced condition: with unspecified complication Qualified Code(s): F10.239 - Alcohol dependence with withdrawal, unspecified Is this a current diagnosis for this admission?: Yes Plan: Resolving. She appears to continue to improve. Reduce Ativan to q6h prn today. Continue PO folate and thiamine. Decreased IV fluids to 50 cc/hr. (2) Alcohol withdrawal seizure Is this a current diagnosis for this admission?: Yes Plan: Resolved. The onset of her seizures are more consistent with alcohol withdrawal seizures. She was started on clonazepam, diazepam 10 mg qhourly prn and Nubain. Discontinued above regimen and switched to Ativan prn. No recurrence of seizure since admission. (3) Hypomagnesemia Is this a current diagnosis for this admission?: Yes Plan: Resolved. (4) Hypokalemia Is this a current diagnosis for this admission?: Yes Plan: Resolved. (5) UTI (urinary tract infection) Is this a current diagnosis for this admission?: Yes Plan: Continue Rocephin. Last day of antibiotics on 03/03/18. - Time Time Spent with patient: 25-34 minutes
--- NOTE | 2018-02-28 15:47 | RADIOLOGY REPORT (SQ) ---
EXAM DESCRIPTION: CHEST SINGLE VIEW COMPLETED DATE/TIME: 02/28/2018 3:19 pm REASON FOR STUDY: rhonchi COMPARISON: AP CHEST 02/25/2018, 02/22/2018 EXAM PARAMETERS: NUMBER OF VIEWS: One view. TECHNIQUE: Single frontal radiographic view of the chest acquired. RADIATION DOSE: NA LIMITATIONS: None. FINDINGS: LUNGS AND PLEURA: Trace left pleural effusion is present with minimal left basilar airspac e disease atelectasis versus pneumonia. Right lung well inflated and clear. No right or left pneumothorax. MEDIASTINUM AND HILAR STRUCTURES: No masses. Contour normal. HEART AND VASCULAR STRUCTURES: Heart normal in size. Normal vasculature. BONES: No acute findings. HARDWARE: None in the chest. OTHER: No other significant finding. IMPRESSION: Trace left pleural effusion with minimal left basilar airspace disease, atelectasis vers us pneumonia TECHNICAL DOCUMENTATION: JOB ID: [id number] [email or web address]- All Rights Reserved Reading location - IP/workstation name: [facility]-[email or web address]
[2018-02-28] MEDS: CEFTRIAXONE 1 GM/D5W RTU 1 GM/50 ML RTUPB IV SCH (17:01)
[2018-03-01] MEDS: ATENOLOL 50 MG TABLET PO SCH (01:57)
[2018-03-01] MEDS: HEPARIN SOD (PORCINE) 5,000 UNIT/ML 1 ML SYRINGE SUBCUT SCH ×2 (05:16→13:38)
[2018-03-01] MEDS: DOCUSATE SODIUM 100 MG CAPSULE PO SCH (09:58)
[2018-03-01] MEDS: FAMOTIDINE 20 MG TABLET PO SCH (10:02)
[2018-03-01] MEDS: THIAMINE HCL 100 MG TABLET PO SCH (10:02)
[2018-03-01] MEDS: MULTIVITAMIN TABLET PO SCH (10:02)
[2018-03-01 13:58] VITALS: BP 143/65
--- NOTE | 2018-03-01 16:53 | PDOC DISCHARGE SUMMARY ---
General - Admit/Disc Date/PCP Admission Date/Primary Care Provider: 02/21/18 20:24 NORIS HUNTER, DO Discharge Date: 03/01/18 - Discharge Diagnosis (1) Alcohol withdrawal seizure Is this a current diagnosis for this admission?: Yes Summary: We controlled her seizures with benzodiazepines and kept her on a as needed schedule. She had some minor electrolyte disturbances were corrected as well. - Additional Information Resuscitation Status: Full Code Discharge Diet: Regular Discharge Activity: Activity As Tolerated Home Medications: Unobtainable 02/21/18 History of Present Illness History of Present Illness: MATEO TERAN is a 52 year old female who presented to the emergency room with a complaint of 3 "seizures" occurring this evening just prior to coming to the emergency room. She admits that she was aware of the first 2 "mild episodes" which she describes as being a brief interval of staring off into space and having some uncontrollable movements of her extremities with either geovani- ballistic or jerking motions. She further admits that for the third "severe episode" she became unconscious, but her mother who witnessed it noted that she slid down in her chair and was having convulsions of her whole body lasting less than a minute. All 3 episodes occurred over a short spans of time of no more than 10 minutes. She acknowledges that she stopped drinking alcohol approximately 2 days ago. She admits that she was a very heavy every day drinker for many years consuming 1/2 gallon of vodka every 2-3 days. She denies prior similar episodes and has not identified any other aggravating or ameliorating factors for her seizures. After the third episode her mother summoned the ambulance and she was transported to the emergency room. Where she was found to have hypomagnesemia with a serum magnesium 0.6, moderate hypokalemia, mild hyponatremia and elevated liver function tests. She was also noted to be moderately hypertensive but was not found to have a significant tremor, evidence of severe anxiety or hallucinations. She did not complain of postictal headache or lethargy during her ER evaluation. The patient was subsequently admitted to the medical floor with telemetry for further evaluation and treatment. Hospital Course Hospital Course: She was monitored and kept on a CIWA protocol, and was provided vitamin supplementation. She required some correction of some electrolyte disturbances along the way. At time of discharge she had not required any sort of medication for withdrawal in over a day. She does not believe that she has any kind of a drinking problem. She was cautioned to cut back on her drinking at a bare minimum. Her labs and examination were reassuring and she was discharged in good condition. Physical Exam Vital Signs: Temp Pulse Resp BP Pulse Ox 98.8 F 61 16 143/65 H 100 03/01/18 13:53 03/01/18 13:53 03/01/18 13:53 03/01/18 13:53 03/01/18 13:53 Intake & Output 02/28/18 03/01/18 03/02/18 06:59 06:59 06:59 Intake Total 2337.5 782 Output Total 1000 200 Balance 1337.5 582 Weight 58.4 kg 60 kg 60 kg General appearance: PRESENT: no acute distress, cooperative, disheveled Respiratory exam: PRESENT: clear to auscultation kim, symmetrical, unlabored. ABSENT: accessory muscle use, crackles, prolonged expiratory phas, rhonchi, tachypnea, wheezes Cardiovascular exam: PRESENT: RRR, +S1, +S2 Vascular exam: PRESENT: normal capillary refill GI/Abdominal exam: PRESENT: normal bowel sounds, soft. ABSENT: distended, guarding, rebound, tenderness Extremities exam: ABSENT: clubbing, pedal edema Musculoskeletal exam: PRESENT: normal inspection. ABSENT: deformity Neurological exam: PRESENT: alert, awake, oriented to person, oriented to place, oriented to time, oriented to situation, normal gait Psychiatric exam: PRESENT: appropriate affect, normal mood Skin exam: PRESENT: dry, warm Results Laboratory Results: 02/27/18 05:44 02/27/18 16:58 02/21/18 02/21/18 02/22/18 17:00 17:00 00:23 Creatine Kinase 293 H 304 H CK-MB (CK-2) 4.96 H Troponin I 0.060 02/22/18 02/22/18 02/22/18 00:23 06:36 06:36 Creatine Kinase 246 H Cancelled CK-MB (CK-2) 4.47 Troponin I 0.063 02/22/18 06:36 Creatine Kinase CK-MB (CK-2) 3.09 Troponin I 0.047 Impressions: Head CT 02/22/18 17:18 IMPRESSION: NORMAL BRAIN CT WITHOUT CONTRAST. EVIDENCE OF ACUTE STROKE: NO. Pelvis X-Ray 02/22/18 17:37 IMPRESSION: NEGATIVE STUDY OF THE PELVIS. Lumbar Spine X-Ray 02/22/18 17:39 IMPRESSION: NORMAL 5 VIEW LUMBAR SPINE. Chest X-Ray 02/28/18 13:47 IMPRESSION: Trace left pleural effusion with minimal left basilar airspace disease, atelectasis versus pneumonia Qualifiers - * PATIENT BEING DISCHARGED WITH ANY OF THE FOLLOWING DIAGNOSIS: No
== END 2018-03-01 16:48 | disposition home or self-care (01) | DRG 897 ==
LOC: ER 17:32 → EH 20:24 → 4N 23:30
PROVIDERS: ADMIT Emergency Medicine; ATTEND Emergency Medicine
DX: F10.239 Alcohol dependence with withdrawal, unspecified (principal); E87.1 Hypo-osmolality and hyponatremia; N39.0 Urinary tract infection, site not specified; R56.9 Unspecified convulsions; E87.6 Hypokalemia; E83.42 Hypomagnesemia; I10 Essential (primary) hypertension; F17.200 Nicotine dependence, unspecified, uncomplicated
CPT/HCPCS: 36415; 70450; 71045; 72110; 72170; 80048; 80053; 80061; 80307; 81001; 82550; 82553; 83036; 83735; 84439; 84443; 84481; 84484; 85025; 85027; 93005; 93010; 96365; 96366; 96375; 99291; J0360; J0696; J1644; J2060; J3360; J3411; J3475; J3480; J3490; J7030

== ENCOUNTER → 2018-09-16 | Outpatient (CLI) | payer OTHER ==
--- NOTE | 2018-09-18 14:55 | WOMENS IMAGING REPORT ---
EXAM DESCRIPTION: BILAT SCREENING MAMMO W/CAD COMPLETED DATE/TIME: 09/16/2018 9:47 am REASON FOR STUDY: (Z12.31)ENCNTR SCREEN MAMMOGRAM FOR MALIGNANT NEOPLASM OF BREAST Z12.31 ENCNTR SC REEN MAMMOGRAM FOR MALIGNANT NEOPLASM OF [place]ALEY COMPARISON: 2015 to 2017 EXAM PARAMETERS: Standard craniocaudal and mediolateral oblique views of each breast recorded using digital acquisition. Read with the assistance of CAD. .[facility] - [employer]r Version 9.2 LIMITATIONS: None. FINDINGS: No suspicious masses, suspicious calcifications or architectural distortion. No areas of c oncern. IMPRESSION: Negative MAMMOGRAM. BIRADS 1 BREAST DENSITY: b. There are scattered areas of fibroglandular density. BIRAD: ASSESSMENT: 1 NEGATIVE RECOMMENDATION: ROUTINE SCREENING COMMENT: The patient has been notified of the results by letter per MQSA requirements. Additional no tification policies are in place for contacting patient with suspicious or incomplete findings. Quality ID #225: The [employer] recommends an annual screening mammogram for women aged 40 years or over. This facility utilizes a reminder system to ensure that all patients receive reminder letters, and/or direct phone calls for appointments. This includes reminders for routine scr eening mammograms, diagnostic mammograms, or other Breast Imaging Interventions when appropriate. Th is patient will be placed in the appropriate reminder system. TECHNICAL DOCUMENTATION: FINDING NUMBER: (1) ASSESSMENT: (1) JOB ID: [id number] [employer]- All Rights Reserved Reading location - IP/workstation name: [email or web address]
== END ==
LOC: WI 09:16
PROVIDERS: ATTEND Family Medicine
DX: Z12.31 Encounter for screening mammogram for malignant neoplasm of breast (principal)
CPT/HCPCS: 77067

== ENCOUNTER → 2019-11-08 | Outpatient (CLI) | payer OTHER ==
--- NOTE | 2019-11-08 14:28 | WOMENS IMAGING REPORT ---
EXAM DESCRIPTION: 3D SCREENING MAMMO BILAT IMAGES COMPLETED DATE/TIME: 11/08/2019 1:52 pm REASON FOR STUDY: Z12.31 ENCOUNTER FOR SCREENING MAMMOGRAM FOR MALIGNANT NEOPLASM OF BREAST Z12.31 ENCNTR SCREEN MAMMOGRAM FOR MALIGNANT NEOPLASM OF [place]Y COMPARISON: Priors dating back to 2015 EXAM PARAMETERS: Views: Standard craniocaudal and mediolateral oblique views of each breast recorded using digital acquisition and breast tomosynthesis. Read with the assistance of CAD. [facility] - R2 Microbiology Lab Assistant Version 9.2 LIMITATIONS: None. FINDINGS: No suspicious masses, suspicious calcifications or architectural distortion. No areas of c oncern. IMPRESSION: NEGATIVE MAMMOGRAM. BIRADS 1. BREAST DENSITY: b. There are scattered areas of fibroglandular density. BIRAD: ASSESSMENT: 1 NEGATIVE RECOMMENDATION: ROUTINE SCREENING COMMENT: The patient has been notified of the results by letter per MQSA requirements. Additional no tification policies are in place for contacting patient with suspicious or incomplete findings. Quality ID #[id number]: The [employer] recommends an annual screening mammogram for women aged 40 years or over. This facility utilizes a reminder system to ensure that all patients receive reminder letters, and/or direct phone calls for appointments. This includes reminders for routine scr eening mammograms, diagnostic mammograms, or other Breast Imaging Interventions when appropriate. Th is patient will be placed in the appropriate reminder system. TECHNICAL DOCUMENTATION: FINDING NUMBER: (1) ASSESSMENT: (1) JOB ID: [id number] 2010 [employer]- All Rights Reserved Reading location - IP/workstation name: [email or web address]
== END ==
LOC: WI 13:04
PROVIDERS: ATTEND Family Medicine
DX: Z12.31 Encounter for screening mammogram for malignant neoplasm of breast (principal)
CPT/HCPCS: 77063; 77067